=== PATIENT | male | born 1975 | race Hispanic/Latino ===

== ENCOUNTER 2022-05-04 11:05 | Emergency (ER) | payer BC ==
[~2022-05-04] VITALS: Ht 172.7 cm; Wt 104.3 kg
[2022-05-04 11:39] VITALS: BP 141/70
[2022-05-04 13:03] LABS: HEMATOCRIT 37.3 % (42-54); MEAN CORPUSCULAR HEMOGLOBIN 28.6 pg (27.0-33.0); MEAN CORPUSCULAR HGB CONC 34.3 g/dL (32.0-36.0); MEAN CORPUSCULAR VOLUME 83.4 fL (79-99); MONOCYTES % (AUTO) 5.6 % (3.0-13.0); NEUTROPHILS % (AUTO) 59.9 % (40.0-77.0); PLATELET COUNT (AUTO) 248 K/uL (130-400); RED BLOOD CELL COUNT(AUTO) 4.47 MIL/uL (4.50-6.20); RED CELL DISTRIBUTION WIDTH 12.9 % (11.0-15.5); WHITE BLOOD COUNT (AUTO) 8.3 K/uL (4.8-10.8)
[2022-05-04 13:18] LABS: ALBUMIN 2.6 g/dL (3.5-5.0); CREATININE 1.3 mg/dL (0.5-1.5); POTASSIUM 3.9 mmol/L (3.5-5.1); TOTAL PROTEIN, SERUM 7.2 g/dL (6.0-8.3)
[2022-05-04] MEDS ORDERED: IOHEXOL 350 MG/ML 100ML INFUS..BTL IV ONE (16:59)
[2022-05-04 17:18] LABS: APPEARANCE,URINE CLEAR (CLEAR); BILIRUBIN,URINE NEGATIVE (NEGATIVE); COLOR,URINE COLORLESS (YELLOW); GLUCOSE, URINE (UA) >=1000 mg/dL (NEGATIVE); KETONES,URINE NEGATIVE (NEGATIVE); LEUKOCYTE ESTERASE ,URINE 75 Leu/uL (NEGATIVE); NITRATE,URINE NEGATIVE (NEGATIVE); OCCULT BLOOD,URINE MODERATE (NEGATIVE); PROTEIN,URINE 70 mg/dL (NEGATIVE); UROBILINOGEN,URINE 0.2 mg/dL (0.2-1.0)
[2022-05-04 17:50] LABS: BACTERIA,URINE FEW /HPF (None Seen); SQUAMOUS EPITHELIAL CELL,UR RARE /HPF (0-2); WBC,URINE 26-50 /HPF (0-1); YEAST,URINE BUDDING FEW /HPF (None Seen)
[2022-05-04] MEDS ORDERED: SOLU-MEDROL 125MG VIAL IM ONE (18:30)
[2022-05-04] MEDS ORDERED: INSULIN HUMULIN R 100 UNIT/ML 3ML SQ ONE (19:00)
[2022-05-04] MEDS ORDERED: 0.9%NACL 1000ML 1,000 ML IV ONE (19:00)
== END 2022-05-04 19:53 | disposition home or self-care (01) ==
LOC: EDH 11:05
DX: R06.02 Shortness of breath (principal); E11.9 Type 2 diabetes mellitus without complications; I10 Essential (primary) hypertension; Z90.49 Acquired absence of other specified parts of digestive tract
CPT/HCPCS: 99284; 96360; 71270; 71045; 84484; 80053; 85025; 85378; 87088; 81001; 36415; 96372 ×2; 93005; J1815; J7030; J2930; Q9967; 96361

== ENCOUNTER 2024-10-14 12:44 | Inpatient (IN) | payer BC ==
[~2024-10-14] VITALS: Ht 172.7 cm; Wt 115.4 kg
[2024-10-14 13:03] LABS: IMMATURE GRANULOCYTE ABSOLUTE 0.20 K/uL (0-1); NUCLEATED RED BLOOD CELLS 0.0 % (0.0-0.19); PLATELET COUNT (AUTO) 281 K/uL (130-400); RED BLOOD CELL COUNT(AUTO) 3.39 MIL/uL (4.50-6.20); RED CELL DISTRIBUTION WIDTH 16.5 % (11.0-15.5); WHITE BLOOD COUNT (AUTO) 8.5 K/uL (4.8-10.8)
[2024-10-14 13:10] LABS: CREATININE 2.2 mg/dL (0.5-1.3); GLOMERULAR FILTR. RATE CALC 36.0 mL/min (>90); GLUCOSE,RANDOM 166.0 mg/dL (70-105); SODIUM SERUM 146.0 mmol/L (136-145); UREA NITROGEN, BLOOD 39.0 mg/dL (7-18)
--- NOTE | 2024-10-14 13:23 | EKG ---
[facility] Test Date: 2024-10-14 Test Time: 12:49:15 Pat Name: BORIS YE Department: EDH Room: 328 Gender: M Direct Care Specialist: [id number] : 1975 Requested By: FER BARRIOS Order Number: [id number] Reading MD: Wander Parisi Measurements Intervals [place] Rate: 76 P: 27 SD: 129 QRS: -22 QRSD: 93 T: 80 QT: 392 QTc: 443 Interpretive Statements Sinus rhythm Probable LVH with secondary repol abnrm Compared to ECG 05/04/2022 11:44:28 Ventricular premature complex(es) no longer present Electronically Signed On 10-19-2024 10:26:25 CDT by Wander Parisi Please click the below link to view image of tracing.
--- NOTE | 2024-10-14 13:25 | ERN ---
General Chief Complaint: Shortness of Breath Stated Complaint: SOB Time Seen by MD: 13:00 Source: patient History of Present Illness Initial Comments Mr. Desean WARREN is a 49 year old male patient brought to the ER by the EMS from his residence. Pt has been complaining of shortness of breath from the last night. He says he has SOB even with talking. Pt was recently admitted to [facility] for similar complaints and was discharged a month ago. Pt says that he was advised to discontinue Lasix during his admission last month. Pt has had similar complaints since his COVID 5 years ago Pt also complains of bilateral leg swelling. 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 Allergies: Coded Allergies: No Known Allergies (Unverified Allergy, Unknown, 05/04/22) Past Medical History Past Medical History: Diabetes-Type II, Heart Disease, Hypertension, Lung Disease Past Surgical History: Appendectomy Surgical History Other: CARDIAC STENTS X3 ROS Dictation CONSTITUTIONAL: No chills, no fever, no weakness, no diaphoresis, no malaise. HEAD/FACE: No signs of trauma. EENT: No eye pain, no blurred vision, no tearing, no double vision, no ear pain , no ear discharge, no nose pain, no nasal congestion, no throat pain, no throat swelling, no mouth pain. RESPIRATORY: No cough, SOB, orthopnea, no PND, no wheezing. CARDIOVASCULAR: No chest pain, b/l leg edema, no palpitations, no syncope. GASTROINTESTINAL/ABDOMINAL: No abdominal pain, no constipation, no diarrhea, no nausea, no vomiting. GENITOURINARY: No abnormal discharge, no dysuria, no frequent urination, no hematuria. No complaints of pain in the genitals. MUSCULOSKELETAL: No back pain, no gout, no joint pain, no joint swelling, no muscle pain, no muscle stiffness, no neck pain. INTEGUMENTARY: No change in color, no change in hair/nails, no dryness, no lesion, no lumps, no rash. NEUROLOGICAL/PSYCH: No anxiety, not depressed, no emotional problem, no headache, no numbness, no pre-existing deficit, no history of seizures, no tremors, no weakness. HEMATOLOGIC/LYMPHATIC: Not anemic, no history of blood clots, no apparent bleeding, no bruising, glands not swollen. All Systems Negative, Except as Noted. Physical Exam Physical Exam Dictation VITAL SIGNS: Reviewed. GENERAL APPEARANCE: Alert, oriented x3 HEAD AND FACE: Non-traumatic. EYES: PERRL, pink conjunctivas, eyelid no trauma, anterior chamber clear. EARS: Pinnas intact and no signs of trauma or erythema. Ear canals clear and no discharge. TMs no erythema. NOSE: No discharge, no bleeding. OROPHARYNX: Mouth normal, teeth no caries, tongue pink. Pharynx clear, no erythema. Tonsils no exudates, no abscesses noted. Mucous membrane moist. NECK: Supple, non-tender, no thyromegaly, no masses, no JVD, no bruits. BREAST: Deferred. CHEST: No tenderness, no crepitus, no paradoxical movement, no retractions. LUNGS: B/l crackles heard up to upper lobes, symmetric, no rales, no wheezing, no rhonchi, no stridor. HEART: Regular rate, regular rhythm, no murmur, no gallops. VASCULAR: No peripheral edema. ABDOMEN: Soft, positive bowel sounds, nondistended, no guarding, nontender, no rebound, no masses no hepatomegaly, no splenomegaly, no Mckinley's sign, no hernias. RECTAL: Deferred. GENITAL: Deferred. NEUROLOGICAL: Normal speech, gross motor function intact, gross sensory function intact. MUSCULOSKELETAL: Neck nontender, full range of motion, back nontender, full range of motion. EXTREMITIES: B/l pitting edema in legs, Nontender, full range of motion. SKIN: Color pink, dry, no turgor, no rash, no lacerations, no abrasions, no contusions. LYMPHATICS: Deferred. Results Laboratory and Microbiology Lab and Micro Result Laboratory Tests Test 10/14/24 12:57 10/14/24 14:01 White Blood Count 8.5 K/uL (4.8-10.8) Red Blood Count 3.39 MIL/uL (4.50-6.20) L Hemoglobin 9.8 g/dL (14.0-18.0) L Hematocrit 29.7 % (42-54) L Mean Corpuscular Volume 87.6 fL (79-99) Mean Corpuscular Hemoglobin 28.9 pg (27.0-33.0) Mean Corpuscular Hemoglobin Concent 33.0 g/dL (32.0-36.0) Red Cell Distribution Width 16.5 % (11.0-15.5) H Platelet Count 281 K/uL (130-400) Mean Platelet Volume 9.7 fL (7.5-10.5) Immature Granulocyte % (Auto) 2.4 % (0-1) H Neutrophils (%) (Auto) 63.9 % (40.0-77.0) Lymphocytes (%) (Auto) 25.3 % (21.0-51.0) Monocytes (%) (Auto) 5.7 % (3.0-13.0) Eosinophils (%) (Auto) 2.1 % (0.0-8.0) Basophils (%) (Auto) 0.6 % (0.0-5.0) Neutrophils # (Auto) 5.4 K/uL (1.8-7.7) Lymphocytes # (Auto) 2.1 K/uL (1.0-4.8) Monocytes # (Auto) 0.5 K/uL (0.1-1.0) Eosinophils # (Auto) 0.18 K/uL (0.00-0.70) Basophils # (Auto) 0.05 K/uL (0.00-0.20) Absolute Immature Granulocyte (auto 0.20 K/uL (0-1) Nucleated Red Blood Cells 0.0 % (0.0-0.19) Sodium Level 146 mmol/L (136-145) H Potassium Level 3.7 mmol/L (3.5-5.1) Chloride Level 110 mmol/L (101-111) Carbon Dioxide Level 31 mmol/L (21-32) Blood Urea Nitrogen 39 mg/dL (7-18) H Creatinine 2.2 mg/dL (0.5-1.3) H Glomerular Filtration Rate Calc 36 mL/min (>90) Random Glucose 166 mg/dL (70-105) H Total Calcium 7.9 mg/dL (8.5-10.1) L Troponin I High Sensitivity 22 ng/L (4-75) B-Type Natriuretic Peptide 110 pg/mL (0-100) H Urine Color LIGHT-YELLOW (YELLOW) Urine Appearance CLOUDY (CLEAR) H Urine pH 6.5 (5.0-8.0) Urine Specific [place] 1.017 (1.001-1.031) Urine Protein 300 mg/dL (NEGATIVE) H Urine Glucose (UA) 500 mg/dL (NEGATIVE) H Urine Ketones NEGATIVE mg/dL (NEGATIVE) Urine Occult Blood SMALL (NEGATIVE) H Urine Nitrate NEGATIVE (NEGATIVE) Urine Bilirubin NEGATIVE mg/dL (NEGATIVE) Urine Urobilinogen 0.2 mg/dL (0.2-1.0) Urine Leukocyte Esterase 500 Mariama/uL (NEGATIVE) H Urine RBC 11-25 /HPF (0-1) H Urine WBC >100 /HPF (0-1) H Urine Squamous Epithelial Cells RARE /HPF (0-2) Urine Bacteria RARE /HPF (None Seen) MDM MDM: Differential diagnosis: MARISABEL with UTI, MARISABEL on CKD, Acute Bronchitis, Lung scarring post COVID. Rationale: Tests considered and ordered secondary to shared decision making include: Previous outside records reviewed: Old ER visits. Risk of complication and/or morbidity or mortality of patient management: None Medications-Per medication reconciliation Need for hospitalization: Patient meets criteria for hospitalization. Need for emergency major/minor surgery: No There are no social concerns with this patient. Prescription drug management Prescriptions will include symptomatic care Patient's prior external medical records from other ER visits were reviewed by me as indicated. Prior testing and results from previous visits were reviewed. Prior tests were taken into account with medical decision making and resource utilization, independent historian/historians were used to obtain complete medical history. I independently interpreted the test that were performed, results were reviewed by me and considered findings on radiology if ordered. * Medical management and examination interpretation discussions were had by me with other qualified healthcare professionals as indicated for the patient's care. Pt case was discussed with Hospitalist and will be admitted under Dr. Peraza for Inpatient management. ED Course Orders Procedure Category Date Status Time Cbc With Differential LAB 10/14/24 Complete 12:45 Chest 1vw RAD 10/14/24 Resulted 12:45 12 Lead Ekg Tracing- EKG 10/14/24 Complete Technical 12:45 Troponin I High LAB 10/14/24 Complete Sensitivity 12:45 Urinalysis Profile LAB 10/14/24 Complete 12:45 Basic Metabolic Panel LAB 10/14/24 Complete 12:45 B-Type Natriuretic LAB 10/14/24 Complete Peptide 12:45 Culture Urine JUNIOR 10/14/24 In Process 14:26 Lactated Ringers PHA 10/14/24 In Process 1000ml (Lactated 15:00 Ceftriaxone 1g Vial PHA 10/14/24 Complete (Rocephine 1g Inj) 15:00 Current Medications Medications (Trade) Dose Ordered Sig/Rosaura Route PRN Reason Start Time Stop Time Status Last Admin Dose Admin Ceftriaxone Sodium (ROCEphine 1G INJ) 1 gm ONCE ONCE IVPB 10/14/24 15:00 10/14/24 15:02 DC Lactated Ringer's 1,000 ml @ 125 mls/hr Q8H IV 10/14/24 15:00 11/13/24 14:59 Vital Signs Date Time Temp Pulse Resp B/P (MAP) Pulse Ox O2 Delivery O2 Flow Rate FiO2 10/14/24 12:51 97.9 76 20 143/90 96 Room Air DX & DISP Disposition: Inpatient Decision to Admit Time: 16:00 Departure Impression: Primary Impression: Acute kidney injury superimposed on chronic kidney disease Additional Impression: UTI (urinary tract infection) with pyuria Condition: Stable Referrals: PAULA LOVE (PCP) MEET BLACK MD Oct 14, 2024 13:25 FER BARRIOS MD Oct 14, 2024 15:58
[2024-10-14 14:19] LABS: APPEARANCE,URINE CLOUDY (CLEAR); GLUCOSE, URINE (UA) 500 mg/dL (NEGATIVE); LEUKOCYTE ESTERASE ,URINE 500 Leu/uL (NEGATIVE); NITRATE,URINE NEGATIVE (NEGATIVE); OCCULT BLOOD,URINE SMALL (NEGATIVE)
[2024-10-14 14:26] LABS: ADD UA MICROSCOPIC YES
[2024-10-14 14:30] LABS: SQUAMOUS EPITHELIAL CELL,UR RARE /HPF (0-2)
--- NOTE | 2024-10-14 14:54 | HMCIMG ---
EXAM: CR Chest, 1 View. CLINICAL HISTORY: sob COMPARISON: Chest radiograph dated May 04, 2022. FINDINGS: There is mild bilateral perihilar and bibasilar airspace disease that may reflect a combination of atelectasis and pulmonary edema. No pleural effusion or pneumothorax. Mild cardiomegaly, and pulmonary vascular congestion. IMPRESSION: 1. Mild bilateral perihilar and bibasilar airspace disease, possibly representing atelectasis and pulmonary edema. 2. Mild cardiomegaly with pulmonary vascular congestion. /[place]
[2024-10-14] MEDS ORDERED: LACTULOSE 20 GM/30 ML UDCUP PO PRN (15:30)
--- NOTE | 2024-10-14 15:42 | HP ---
[facility] HISTORY AND PHYSICAL Date of Service: Oct 14, 2024 Time of Service: 15:32 HISTORY OF PRESENT ILLNESS: [ ] admission date: 10/14/2024 PCP: Vonnie Goncalves CC: Shortness of breath This is a 49-year-old male presents in ED with chief complaints of shortness a breath. 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 Patient was recently hospitalized at [facility] for similar symptoms. Patient is not home oxygen dependent. Patient stated he does not meet criteria for home oxygen in the past. Patient has a plus two edema to lower extremities reports he was on diuretics and was placed on hold per his PCP. Patient has cardiac issues x3 stents he is on Wteuvp24 mg daily atorvastatin, Ranexa 500 every12 hour which I reviewed from external medication history. ER workup was consistent for UTI. Imaging checks x-ray congestion pulmonary edema. Labs reviewed BNP 110, REVIEW OF SYSTEMS a 12 point ROS was obtained all relevant were documenter otherwise ROS negative PAST MEDICAL HISTORY: [ ] Hypertension, diabetes type 2, CKD, COVID-19 with excessive lung scarring PAST SURGICAL HISTORY: [ ] Cardiac stents x3, appendectomy PAST SOCIAL HISTORY: [ ] FAMILY HISTORY: [ ] Coded Allergies: No Known Allergies (Unverified Allergy, Unknown, 05/04/22) PHYSICAL EXAM GENERAL APPEARANCE: The patient is awake, alert, and oriented, with respiratory failure requiring oxygen supplemental. NEUROLOGICAL: Cranial nerves II-XII grossly intact. Motor is 5/5 in bilateral upper and lower extremities proximal to distal. No sensory deficits. HEENT: Face is symmetric. Pupils are equal and reactive. Extraocular movements are intact. NECK: Supple. No JVD. No thyromegaly. No submental, submandibular, pre- /postauricular, occipital or supraclavicular lymphadenopathy. CHEST: Normal chest expansion. No Telemetry. LUNGS: Absence of any rales, rhonchi +wheezing. CARDIOVASCULAR: Regular. S1 and S2 normal. No appreciable rubs, murmurs or gallops. ABDOMEN: Soft, nontender, and nondistended. There is no rebound, voluntary guarding, or rigidity. : Deferred. No Parker. EXTREMITIES: Non-edematous and not cyanotic. No clubbing. Good capillary refill. SKIN: No skin breakdown. Vital Sign (Last 24 Hours) 10/14/24 12:51 Temp 97.9 Pulse 76 Resp 20 B/P (MAP) 143/90 Pulse Ox 96 O2 Delivery Room Air LABS: Laboratory: Test 10/14/24 14:01 10/14/24 12:57 Range/Units Urine Color LIGHT-YELLOW YELLOW Urine Appearance CLOUDY H CLEAR Urine pH 6.5 5.0-8.0 Urine Specific [place] 1.017 1.001-1.031 Urine Protein 300 H NEGATIVE mg/dL Urine Glucose (UA) 500 H NEGATIVE mg/dL Urine Ketones NEGATIVE NEGATIVE mg/dL Urine Occult Blood SMALL H NEGATIVE Urine Nitrate NEGATIVE NEGATIVE Urine Bilirubin NEGATIVE NEGATIVE mg/dL Urine Urobilinogen 0.2 0.2-1.0 mg/dL Urine Leukocyte Esterase 500 H NEGATIVE Mariama/uL Urine RBC 11-25 H 0-1 /HPF Urine WBC >100 H 0-1 /HPF Urine Squamous Epithelial Cells RARE 0-2 /HPF Urine Bacteria RARE None Seen /HPF White Blood Count 8.5 4.8-10.8 K/uL Red Blood Count 3.39 L 4.50-6.20 MIL/uL Hemoglobin 9.8 L 14.0-18.0 g/dL Hematocrit 29.7 L 42-54 % Mean Corpuscular Volume 87.6 79-99 fL Mean Corpuscular Hemoglobin 28.9 27.0-33.0 pg Mean Corpuscular Hemoglobin Concent 33.0 32.0-36.0 g/dL Red Cell Distribution Width 16.5 H 11.0-15.5 % Platelet Count 281 130-400 K/uL Mean Platelet Volume 9.7 7.5-10.5 fL Immature Granulocyte % (Auto) 2.4 H 0-1 % Neutrophils (%) (Auto) 63.9 40.0-77.0 % Lymphocytes (%) (Auto) 25.3 21.0-51.0 % Monocytes (%) (Auto) 5.7 3.0-13.0 % Eosinophils (%) (Auto) 2.1 0.0-8.0 % Basophils (%) (Auto) 0.6 0.0-5.0 % Neutrophils # (Auto) 5.4 1.8-7.7 K/uL Lymphocytes # (Auto) 2.1 1.0-4.8 K/uL Monocytes # (Auto) 0.5 0.1-1.0 K/uL Eosinophils # (Auto) 0.18 0.00-0.70 K/uL Basophils # (Auto) 0.05 0.00-0.20 K/uL Absolute Immature Granulocyte (auto 0.20 0-1 K/uL Nucleated Red Blood Cells 0.0 0.0-0.19 % Sodium Level 146 H 136-145 mmol/L Potassium Level 3.7 3.5-5.1 mmol/L Chloride Level 110 101-111 mmol/L Carbon Dioxide Level 31 21-32 mmol/L Blood Urea Nitrogen 39 H 7-18 mg/dL Creatinine 2.2 H 0.5-1.3 mg/dL Glomerular Filtration Rate Calc 36 >90 mL/min Random Glucose 166 H 70-105 mg/dL Total Calcium 7.9 L 8.5-10.1 mg/dL Troponin I High Sensitivity 22 4-75 ng/L B-Type Natriuretic Peptide 110 H 0-100 pg/mL Current Medications Medications (Trade) Dose Ordered Sig/Rosaura Route PRN Reason Start Time Stop Time Status Last Admin Dose Admin Lactated Ringer's 1,000 ml @ 125 mls/hr Q8H IV 10/14/24 15:00 11/13/24 14:59 DIAGNOSTICS / RADIOLOGY: [ ] ASSESSMENT: Acute respiratory failure with hypoxia requiring oxygen supplemental POA suspecting PE POA Dyspnea on exertion POA UTI POA POA MARISABEL on CRFPOA Anemia on CRF POA Adult obesity class II POA Severe protein calorie malnutrition POA Hypomagnesemia POA PLAN: Admit:medical floor condition:guarded 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 Head of the bed at 45 at all times Aspiration precautions Inhaler budesonide scheduled We will monitor H&H trend transfuse to keep hemoglobin above 7.0; anemia workup Labs cbc, cmp, mag+ BNP am Replace electrolytes as needed as per protocol to keep potassium above 4.0 magnesium 2.0. avoid NSAIDS, renal dose mediation strict I/O ac/hs monitoring with SSRI coverage Home medications pending to be reviewed by RN nurse. Reviewed external medications: resumed Plavix, atorvastatin Budesonide IH PRN: MEDICATIONS Tylenol 650 mg po every 4 hrs for fever Zofran 4 mg IV every 6 hrs for n/v Hydralazine 5 mg IV every 4 hrs systolic pressure > 160 bowel regiment: lactulose 20 gm PO BID PRN constipation Supportive measures: DVT ppx, GI ppx all questions answered time spent: > 35 min Supervising MD: Dr.Ellis Ogden c/d This document was generated in part using voice recognition software, occasional wrong word or sound alike substitutions may have occurred due to the inherent limitations of voice recognition software. Read the chart carefully and recognize using context, where the substitutions have occurred. Although every effort was made to edit the content, food processor and typing errors may occur ADVANCED CARE PLANNING 1. Which of the following were discussed? Hospice Care - Yes / No Therapeutic options - Yes / No Advance Directives - Yes / No Other discussions - 2. Discussed with who? 3. Voluntary nature of this service was explained to the patient? Yes / No 4. Amount of time spent - 5. Reviewed by Physician? (if this service was performed by NPP) Yes / No ATTESTATION BY PHYSICIAN I have seen and examined the patient. I reviewed the documentation, medical decision making, and treatment plan as noted by the mid-level provider above. I agree with the findings and plan of care. FRIDA BUTTERFIELD MD, ELIZABETH NP Oct 14, 2024 15:42
[2024-10-14 15:50] LABS: IMMATURE GRANULOCYTE ABSOLUTE 0.21 K/uL (0-1); NUCLEATED RED BLOOD CELLS 0.0 % (0.0-0.19); PLATELET COUNT (AUTO) 283 K/uL (130-400); RED BLOOD CELL COUNT(AUTO) 3.20 MIL/uL (4.50-6.20); RED CELL DISTRIBUTION WIDTH 16.6 % (11.0-15.5); WHITE BLOOD COUNT (AUTO) 9.4 K/uL (4.8-10.8)
[2024-10-14] MEDS ORDERED: PoTASSium chl 10% ELIXIR 20MEQ 20 MEQ/15 ML UDCUP PO PRN (16:00)
[2024-10-14 16:07] LABS: CREATININE 2.1 mg/dL (0.5-1.3); GLOMERULAR FILTR. RATE CALC 38.0 mL/min (>90); GLUCOSE,RANDOM 86.0 mg/dL (70-105); SODIUM SERUM 146.0 mmol/L (136-145); UREA NITROGEN, BLOOD 39.0 mg/dL (7-18)
[2024-10-14 16:12] LABS: ASPARTATE AMINOTRANSFERASE 12.0 U/L (10-37); TOTAL PROTEIN, SERUM 4.8 g/dL (6.0-8.3)
--- NOTE | 2024-10-14 16:27 | HMCIMG ---
Exam: Renal Ultrasound History: MARISABEL Comparison: None Technique: Grayscale and color Doppler imaging was performed. Static images were obtained. Findings: Right kidney: The right kidney is normal in size, contour, and echogenicity. It measures 13.2 cm in length. No calculi or masses are identified. There is no evidence of hydronephrosis. Left kidney: The left kidney is normal in size, contour, and echogenicity. It measures 11.9 cm in length. No calculi or masses are identified. There is no evidence of hydronephrosis. Urinary bladder: The bladder is normal in contour and appearance. Impression: No sonographic abnormality. /[place]
[2024-10-14 17:16] VITALS: PULSE 73; RESP 18; O2SAT 97
[2024-10-14] MEDS: LACTATED RINGERS 1000ML 1,000 ML IV SCH (17:20)
[2024-10-14 19:35] VITALS: PULSE 86; RESP 18
[2024-10-14] MEDS: MAGNESIUM 2GM PREMIX 50ML 50 ML IV PRN (21:49)
--- NOTE | 2024-10-14 22:00 | NUR ---
REPORT GIVEN TO [facility].
--- NOTE | 2024-10-14 22:10 | NUR ---
PATIENT TRANSPORTED TO [facility]
[2024-10-14 22:16] VITALS: BP 159/84; PULSE 75; RESP 20; TEMP 97.7; O2SAT 100
[2024-10-14] MEDS ORDERED: IPRA3AMP24 NEB (22:35)
[2024-10-14] MEDS ORDERED: AEC81 PO (22:35)
[2024-10-14] MEDS ORDERED: HYDR50TA36 PO (22:35)
[2024-10-14] MEDS ORDERED: ATOR40TA71 PO (22:35)
[2024-10-14] MEDS ORDERED: METO10TA3 PO (22:35)
[2024-10-14] MEDS ORDERED: CLOP75TA32 PO (22:35)
[2024-10-14] MEDS ORDERED: INSLAN SQ (22:35)
[2024-10-14] MEDS ORDERED: PANT40TA54 PO (22:35)
[2024-10-14] MEDS ORDERED: CARV25TA PO (22:35)
[2024-10-14] MEDS ORDERED: BUDE0.5A3 NEB (22:35)
[2024-10-14] MEDS ORDERED: INSU100V SQ (22:35)
[2024-10-14] MEDS ORDERED: RANO500T6 PO (22:35)
[2024-10-14] MEDS ORDERED: TRAZ-253 PO (22:35)
[2024-10-14] MEDS: BUDESONIDE 0.5 MG/2 ML INH IH SCH (23:06)
[2024-10-15] VITALS (12 sets, daily range): BP systolic 144–175; BP diastolic 68–101; PULSE 54–113; RESP 18–20; TEMP 97.4–98.6; O2SAT 92–99
[2024-10-15 04:28] LABS: IMMATURE GRANULOCYTE ABSOLUTE 0.29 K/uL (0-1); NUCLEATED RED BLOOD CELLS 0.0 % (0.0-0.19); PLATELET COUNT (AUTO) 280 K/uL (130-400); RED BLOOD CELL COUNT(AUTO) 3.46 MIL/uL (4.50-6.20); RED CELL DISTRIBUTION WIDTH 16.8 % (11.0-15.5); WHITE BLOOD COUNT (AUTO) 10.4 K/uL (4.8-10.8)
[2024-10-15 05:07] LABS: ASPARTATE AMINOTRANSFERASE 13.0 U/L (10-37); CREATININE 2.1 mg/dL (0.5-1.3); GLOMERULAR FILTR. RATE CALC 38.0 mL/min (>90); GLUCOSE,RANDOM 159.0 mg/dL (70-105); SODIUM SERUM 141.0 mmol/L (136-145); TOTAL PROTEIN, SERUM 5.1 g/dL (6.0-8.3); UREA NITROGEN, BLOOD 37.0 mg/dL (7-18)
[2024-10-15 05:24] LABS: % IRON SATURATION 22.6 % (30-44); IRON, SERUM 43.0 mcg/dL (65-175)
--- NOTE | 2024-10-15 06:06 | HMCIMG ---
EXAMINATION: SPECTRAL DOPPLER ULTRASOUND EXAMINATION OF THE BILATERAL LOWER EXTREMITY VEINS. CLINICAL HISTORY: Swelling, to rule out DVT. COMPARISON: None provided. TECHNIQUE: Real-time ultrasound scan of the veins of the bilateral lower extremity with color Doppler flow, spectral waveform analysis and compression. FINDINGS: DEEP VEINS: The common femoral, superficial femoral, and popliteal veins are echolucent and compressible. There is normal color Doppler flow throughout. The visualized calf veins appear patent. SUPERFICIAL VEINS: The greater saphenous veins are patent and compressible. SOFT TISSUES: No popliteal fossa cyst or other abnormalities. There is subcutaneous edema bilaterally. IMPRESSION: No deep venous thrombosis evident in the bilateral lower extremity. No superficial thrombophlebitis in the bilateral lower extremity. Subcutaneous edema in the bilaterally. /[place]
--- NOTE | 2024-10-15 09:05 | PN ---
[facility] PROGRESS NOTE Date of Service: Oct 15, 2024 Time of Service: 09:01 SUBJECTIVE: [ ] admission date: 10/14/2024 PCP: Vonnie Goncalves CC: Shortness of breath This is a 49-year-old male presents in ED with chief complaints of shortness a breath. 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 Patient was recently hospitalized at [facility] for similar symptoms. Patient is not home oxygen dependent. Patient stated he does not meet criteria for home oxygen in the past. Patient has a plus two edema to lower extremities reports he was on diuretics and was placed on hold per his PCP. Patient has cardiac issues x3 stents he is on [id number] mg daily atorvastatin, Ranexa 500 every12 hour which I reviewed from external medication history. ER workup was consistent for UTI. Imaging checks x-ray congestion pulmonary edema. Labs reviewed BNP 110, 10/15 patient is lying in bed continue dyspneic during my evaluation waiting for V/Q scan if negative I encouraged patient out bed to chair throughout the day avoid main in bed most of the day. Waiting for cultures urine. REVIEW OF SYSTEMS a 12 point ROS was obtained all relevant were documenter otherwise ROS negative PHYSICAL EXAM GENERAL APPEARANCE: The patient is awake, alert, and oriented, with respiratory failure requiring oxygen supplemental. NEUROLOGICAL: Cranial nerves II-XII grossly intact. Motor is 5/5 in bilateral upper and lower extremities proximal to distal. No sensory deficits. HEENT: Face is symmetric. Pupils are equal and reactive. Extraocular movements are intact. NECK: Supple. No JVD. No thyromegaly. No submental, submandibular, pre- /postauricular, occipital or supraclavicular lymphadenopathy. CHEST: Normal chest expansion. No Telemetry. LUNGS: Absence of any rales, rhonchi +wheezing. CARDIOVASCULAR: Regular. S1 and S2 normal. No appreciable rubs, murmurs or gallops. ABDOMEN: Soft, nontender, and nondistended. There is no rebound, voluntary guarding, or rigidity. : Deferred. No Parker. EXTREMITIES: Non-edematous and not cyanotic. No clubbing. Good capillary r efill. SKIN: No skin breakdown. Vital Signs (last 8hr) Date Time Temp Pulse Resp B/P (MAP) Pulse Ox O2 Delivery O2 Flow Rate FiO2 10/15/24 08:00 97.7 102 18 144/77 92 Room Air 21 10/15/24 06:17 95 18 10/15/24 06:17 18 N/Cannula Low lpm 2.0 21 10/15/24 04:00 97.3 90 20 153/76 99 Room Air LABS: Laboratory: Test 10/15/24 05:01 10/15/24 04:12 10/14/24 15:43 10/14/24 14:01 Range/Units Whole Blood Glucose 145 H 70-110 MG/DL White Blood Count 10.4 4.8-10.8 K/uL Red Blood Count 3.46 L 4.50-6.20 MIL/uL Hemoglobin 10.1 L 14.0-18.0 g/dL Hematocrit 30.5 L 42-54 % Mean Corpuscular Volume 88.2 79-99 fL Mean Corpuscular Hemoglobin 29.2 27.0-33.0 pg Mean Corpuscular Hemoglobin Concent 33.1 32.0-36.0 g/dL Red Cell Distribution Width 16.8 H 11.0-15.5 % Platelet Count 280 130-400 K/uL Mean Platelet Volume 10.2 7.5-10.5 fL Immature Granulocyte % (Auto) 2.8 H 0-1 % Neutrophils (%) (Auto) 70.9 40.0-77.0 % Lymphocytes (%) (Auto) 17.6 L 21.0-51.0 % Monocytes (%) (Auto) 7.0 3.0-13.0 % Eosinophils (%) (Auto) 1.2 0.0-8.0 % Basophils (%) (Auto) 0.5 0.0-5.0 % Neutrophils # (Auto) 7.4 1.8-7.7 K/uL Lymphocytes # (Auto) 1.8 1.0-4.8 K/uL Monocytes # (Auto) 0.7 0.1-1.0 K/uL Eosinophils # (Auto) 0.13 0.00-0.70 K/uL Basophils # (Auto) 0.05 0.00-0.20 K/uL Absolute Immature Granulocyte (auto 0.29 0-1 K/uL Nucleated Red Blood Cells 0.0 0.0-0.19 % Reticulocyte Count (auto) 4.19281 H 0.42-2.23 % Immature Reticulocyte Fraction 21.20 H 0.18-0.48 % Sodium Level 141 136-145 mmol/L Potassium Level 3.7 3.5-5.1 mmol/L Chloride Level 109 101-111 mmol/L Carbon Dioxide Level 27 21-32 mmol/L Blood Urea Nitrogen 37 H 7-18 mg/dL Creatinine 2.1 H 0.5-1.3 mg/dL Glomerular Filtration Rate Calc 38 >90 mL/min Random Glucose 159 #H 70-105 mg/dL Total Calcium 8.0 L 8.5-10.1 mg/dL Magnesium Level 1.80 1.80-2.40 mg/dL Iron Level 43 L 65-175 mcg/dL Total Iron Binding Capacity 190 L 250-450 mcg/dL Percent Iron Saturation 22.6 L 30-44 % Ferritin 51 30-400 ng/mL Total Bilirubin 0.4 # 0.2-1.0 mg/dL Aspartate Amino Transf (AST/SGOT) 13 10-37 U/L Alanine Aminotransferase (ALT/SGPT) 16 12-78 U/L Alkaline Phosphatase 80 50-136 U/L B-Type Natriuretic Peptide 92 0-100 pg/mL Total Protein 5.1 L 6.0-8.3 g/dL Albumin 1.7 L 3.5-5.0 g/dL Vitamin B12 Level 280 193-986 pg/mL Folic Acid (LAB) 7.70 2-20 ng/mL D-Dimer Quantitative (PE/DVT) 625 *H 0-500 ng/mL Urine Color LIGHT-YELLOW YELLOW Urine Appearance CLOUDY H CLEAR Urine pH 6.5 5.0-8.0 Urine Specific [place] 1.017 1.001-1.031 Urine Protein 300 H NEGATIVE mg/dL Urine Glucose (UA) 500 H NEGATIVE mg/dL Urine Ketones NEGATIVE NEGATIVE mg/dL Urine Occult Blood SMALL H NEGATIVE Urine Nitrate NEGATIVE NEGATIVE Urine Bilirubin NEGATIVE NEGATIVE mg/dL Urine Urobilinogen 0.2 0.2-1.0 mg/dL Urine Leukocyte Esterase 500 H NEGATIVE Mariama/uL Urine RBC 11-25 H 0-1 /HPF Urine WBC >100 H 0-1 /HPF Urine Squamous Epithelial Cells RARE 0-2 /HPF Urine Bacteria RARE None Seen /HPF Test 10/14/24 12:57 Range/Units Troponin I High Sensitivity 22 4-75 ng/L Current Medications Medications (Trade) Dose Ordered Sig/Rosaura Route PRN Reason Start Time Stop Time Status Last Admin Dose Admin Acetaminophen (TYLenol 325MG TAB) 650 mg Q4H PRN PO TEMPERATURE GREATER THAN 101.5 10/14/24 16:00 11/13/24 15:59 Amlodipine Besylate (NorvASC 5MG TAB) 5 mg DAILY PO 10/15/24 09:00 11/14/24 08:59 Atorvastatin Calcium (LIPItor 40MG) 40 mg HS PO 10/14/24 21:00 11/13/24 20:59 10/14/24 21:48 40 MG Budesonide (Pulmicort 0.5 Mg/2ml) 0.5 mg BIDRESP IH 10/14/24 18:00 11/13/24 17:59 10/15/24 06:16 0.5 MG Ceftriaxone Sodium (ROCEphine 1G INJ) 1 gm Q24H IVPB 10/15/24 15:00 10/25/24 14:59 Clopidogrel Bisulfate (plaVIX 75MG) 75 mg DAILY PO 10/15/24 09:00 11/14/24 08:59 Hydralazine HCl (APRESOLine 20MG INJ) 5 mg Q4H PRN IV ADMINISTER FOR SBP > 160 10/14/24 16:00 11/13/24 15:59 10/15/24 03:23 5 MG Insulin Human Regular (humuLIN R 100 UNIT/ML 3ML) INSULIN SLIDING SCAL... ACHS SQ 10/14/24 16:30 11/13/24 16:29 10/14/24 21:57 6 UNIT Lactated Ringer's 1,000 ml @ 75 mls/hr [id number] IV 10/14/24 15:00 10/15/24 02:59 DC 10/14/24 17:20 75 MLS/HR Lactulose (Constulose 20gm/ 30ml Udcup) 20 gm BID PRN PO CONSTIPATION 10/14/24 15:30 11/13/24 15:29 Magnesium Sulfate 50 ml @ 0 mls/hr PROTOCOL PRN IV low mag level 10/14/24 16:00 11/13/24 15:59 10/15/24 05:19 25 MLS/HR Pantoprazole Sodium (PROTonix 40MG INJ) 40 mg DAILY IVP 10/15/24 09:00 11/14/24 08:59 Potassium Chloride 100 ml @ 100 mls/hr AD PRN IV POTASSIUM PROTOCOL 10/14/24 16:00 11/13/24 15:59 Potassium Chloride (K-Dur/Klor-Con 20meq) 20 meq AD PRN PO POTASSIUM PROTOCOL 10/14/24 16:00 11/13/24 15:59 Potassium Chloride (KCl 10% Elixir 20meq/15ml) 20 meq AD PRN PO POTASSIUM PROTOCOL 10/14/24 16:00 11/13/24 15:59 DIAGNOSTICS / RADIOLOGY: [ ] ASSESSMENT: Acute respiratory failure with hypoxia requiring oxygen supplemental POA suspecting PE Dyspnea on exertion POA UTI POA POA MARISABEL on CRF Anemia on CRF POA Adult obesity class II POA Severe protein calorie malnutrition POA Hypomagnesemia POA PLAN: Admit:medical floor condition:guarded 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 b.i.d.. Pulmo largest started him on steroids Solu-Medrol 40 mg IV every8 hours and CT of chest. Microbiology: urine cultures in process Imaging: Pending V/Q scan elevated D-dimer Echo to evaluate LV function noted, Renal sonogram , venous doppler to lower ext noted Oxygen supplement to keep O2 sats above 92%. Head of the bed at 45 at all times Aspiration precautions Inhaler budesonide scheduled We will monitor H&H trend transfuse to keep hemoglobin above 7.0; anemia workup Labs cbc, cmp, mag+ BNP am Replace electrolytes as needed as per protocol to keep potassium above 4.0 magnesium 2.0. avoid NSAIDS, renal dose mediation strict I/O ac/hs monitoring with SSRI coverage Home medications reviewed and reconciled Supportive measures: DVT ppx, GI ppx all questions answered Supervising MD: Dr.Ellis Ogden c/d This document was generated in part using voice recognition software, occasional wrong word or sound alike substitutions may have occurred due to the inherent limitations of voice recognition software. Read the chart carefully and recog nize using context, where the substitutions have occurred. Although every effort was made to edit the content, kitchen assistant and typing errors may occur ATTESTATION BY PHYSICIAN I have seen and examined the patient. I reviewed the documentation, medical decision making, and treatment plan as noted by the mid-level provider above. I agree with the findings and plan of care. FRIDA BUTTERFIELD MD, ELIZABETH NP Oct 15, 2024 09:05
[2024-10-15] MEDS: PoTASSium chloRIDE 20MEQ ER 20 MEQ ERTAB PO PRN (09:15)
[2024-10-15] MEDS: amLODIPine 5 MG TAB PO SCH (09:15)
[2024-10-15 09:36] LABS: ABG BASE EXCESS -3.8 mmol/L (-2.0-3.0); ABG HCO3 22.4 mmol/L (21.0-28.0); ABG OXYGEN SATURATION 78.7 % (94.0-98.0); ABG PCO2 44 mmHg (35-48); ABG PH 7.320 (7.350-7.450); DEVICE COMMENT RRGISELLE; PO2, ARTERIAL BG 46.3 mmHg (83.0-108.0); TEMPERATURE, CELSIUS BG 37.0 CELSIUS (35.5-37.0)
--- NOTE | 2024-10-15 09:53 | NUR ---
DCP: HOME Pt currently lives with sps Tonie Atkinson [phone]. Pt not does not have DME, home health, or provider services. Pt states that he is able to complete ADLs independently. PCP is Gerson Shankar and uses [facility] for any RX needs. At [place] pt will want to go home and family can assist with transportation. Addendum: 10/15/24 at 0955 by FRANKI DOVER SS Amended: Links added.
--- NOTE | 2024-10-15 11:18 | CONS ---
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 Continue Rocephin Start doxycycline Solu-Medrol 40 mg IV every8 hours 6 minute walk test for home O2 eval prior to discharge Obtain CT of the chest HPI: This is a 49-year-old male presents in ED with chief complaints of shortness a breath. 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 Patient was recently hospitalized at [facility] for similar symptoms. Patient is not home oxygen dependent. Patient stated he does not meet criteria for home oxygen in the past. Patient has a plus two edema to lower extremities reports he was on diuretics and was placed on hold per his PCP. Patient has cardiac issues x3 stents he is on [id number] mg daily atorvastatin, Ranexa 500 every12 hour which were reviewed from external medication history. ER workup was consistent for UTI. Imaging checks x-ray congestion pulmonary edema. Labs reviewed BNP 110, patient was placed on3 L nasal cannula for this reason we are consulted. Patient is seen sitting up at the side of the bed appears to be weak with shortness on breath we will communicating. Patient reports he has been dealing with this problem since COVID in 2019 however is progressively getting worse. Patient has been hospitalized on several occasions and then discharged home. P atient admits he has never followed up with a access registrar. Patient is currently on2 L nasal cannula and doing well. Requested set of ABGs and a PO2 with a 46.3. Patient was noted to have bilateral lower extremity edema. Recommend obtain a 2D echo. Recommended CT of the chest. Continue Rocephin. Add doxycycline. Short course of Solu-Medrol 40 mg every 8 hours. Obtain a CRP and ESR. Agree with Pulmicort. Add Atrovent every 4 hours. Obtain a 6 minute walk test for home O2 eval prior to discharge. Patient advised on the importance of outpatient follow up in Pulmonary Clinic. We will continue to follow with you. PAST MEDICAL HX: see above PAST SURGICAL HX: noncontributory SOCIAL HISTORY: No tobacco, ETOH, or illicit drug use Coded Allergies: No Known Allergies (Unverified Allergy, Unknown, 05/04/22) REVIEW OF SYSTEMS: 12 point ROS reviewed with patient. Pertinent positives mentioned above. Otherwise negative. PHYSICAL EXAM: GENERAL: alert, weak, awake oriented x 3 HEENT: EOMI, Sclera non icteric, moist mucosa NECK: Supple, no JVD, trachea midline LUNGS: Clear breath sounds bilaterally. No wheezes HEART: Regular rate and rhythm. Normal S1 and S2, without murmurs ABD: Abdomen soft, nontender. Bowel sounds present EXT: No clubbing cyanosis or edema NEURO: Alert and oriented to person, follows commands Vital Signs (last 8hr) Date Time Temp Pulse Resp B/P (MAP) Pulse Ox O2 Delivery O2 Flow Rate FiO2 10/15/24 09:45 73 18 N/Cannula Low lpm 2.0 28 10/15/24 08:00 97.7 102 18 144/77 92 Room Air 21 10/15/24 06:17 95 18 10/15/24 06:17 18 N/A Room Air 2.0 21 10/15/24 04:00 97.3 90 20 153/76 99 Room Air LABS: Hematology Labs: Test 10/15/24 04:12 Range/Units White Blood Count 10.4 4.8-10.8 K/uL Red Blood Count 3.46 L 4.50-6.20 MIL/uL Hemoglobin 10.1 L 14.0-18.0 g/dL Hematocrit 30.5 L 42-54 % Mean Corpuscular Volume 88.2 79-99 fL Mean Corpuscular Hemoglobin 29.2 27.0-33.0 pg Mean Corpuscular Hemoglobin Concent 33.1 32.0-36.0 g/dL Red Cell Distribution Width 16.8 H 11.0-15.5 % Platelet Count 280 130-400 K/uL Mean Platelet Volume 10.2 7.5-10.5 fL Immature Granulocyte % (Auto) 2.8 H 0-1 % Neutrophils (%) (Auto) 70.9 40.0-77.0 % Lymphocytes (%) (Auto) 17.6 L 21.0-51.0 % Monocytes (%) (Auto) 7.0 3.0-13.0 % Eosinophils (%) (Auto) 1.2 0.0-8.0 % Basophils (%) (Auto) 0.5 0.0-5.0 % Neutrophils # (Auto) 7.4 1.8-7.7 K/uL Lymphocytes # (Auto) 1.8 1.0-4.8 K/uL Monocytes # (Auto) 0.7 0.1-1.0 K/uL Eosinophils # (Auto) 0.13 0.00-0.70 K/uL Basophils # (Auto) 0.05 0.00-0.20 K/uL Absolute Immature Granulocyte (auto 0.29 0-1 K/uL Nucleated Red Blood Cells 0.0 0.0-0.19 % Reticulocyte Count (auto) 4.12399 H 0.42-2.23 % Immature Reticulocyte Fraction 21.20 H 0.18-0.48 % Chemistry Labs: Test 10/15/24 10:41 10/15/24 04:12 10/14/24 12:57 Range/Units Whole Blood Glucose 187 H 70-110 MG/DL Sodium Level 141 136-145 mmol/L Potassium Level 3.7 3.5-5.1 mmol/L Chloride Level 109 101-111 mmol/L Carbon Dioxide Level 27 21-32 mmol/L Blood Urea Nitrogen 37 H 7-18 mg/dL Creatinine 2.1 H 0.5-1.3 mg/dL Glomerular Filtration Rate Calc 38 >90 mL/min Random Glucose 159 #H 70-105 mg/dL Total Calcium 8.0 L 8.5-10.1 mg/dL Magnesium Level 1.80 1.80-2.40 mg/dL Iron Level 43 L 65-175 mcg/dL Total Iron Binding Capacity 190 L 250-450 mcg/dL Percent Iron Saturation 22.6 L 30-44 % Ferritin 51 30-400 ng/mL Total Bilirubin 0.4 # 0.2-1.0 mg/dL Aspartate Amino Transf (AST/SGOT) 13 10-37 U/L Alanine Aminotransferase (ALT/SGPT) 16 12-78 U/L Alkaline Phosphatase 80 50-136 U/L B-Type Natriuretic Peptide 92 0-100 pg/mL Total Protein 5.1 L 6.0-8.3 g/dL Albumin 1.7 L 3.5-5.0 g/dL Vitamin B12 Level 280 193-986 pg/mL Folic Acid (LAB) 7.70 2-20 ng/mL Troponin I High Sensitivity 22 4-75 ng/L Coagulation Labs: Test 10/14/24 15:43 Range/Units D-Dimer Quantitative (PE/DVT) 625 *H 0-500 ng/mL DIAGNOSTICS / RADIOLOGY RESULTS: PATIENT: BORIS YE JR MR#: [id number] : 1975 SEX: M AGE: 49 LOCATION: [facility] ORDER 46 STATUS: REG REPORT#: [id number] SERVICE REASON: sob ORDERING PHYSICIAN: FER BARRIOS MD PROCEDURE: CXR1VW - CHEST 1VW EXAM: CR Chest, 1 View. CLINICAL HISTORY: sob COMPARISON: Chest radiograph dated May 04, 2022. FINDINGS: There is mild bilateral perihilar and bibasilar airspace disease that may reflect a combination of atelectasis and pulmonary edema. No pleural effusion or pneumothorax. Mild cardiomegaly, and pulmonary vascular congestion. IMPRESSION: 1. Mild bilateral perihilar and bibasilar airspace disease, possibly representing atelectasis and pulmonary edema. 2. Mild cardiomegaly with pulmonary vascular congestion. /[place] DICTATED BY: DALY CHRISTY Jr., MD DATE: 10/14/241552 ELECTRONICALLY SIGNED BY: DALY CHRISTY Jr., MD DATE: 10/14/241552 PLAN NEURO: Minimize central acting medications as possible. Maintain fall precautions, adequate lighting during the day PULMONARY: Supplemental 02 as needed. Maintain aspiration precautions at all times CARDIOVASCULAR: Follow hemodynamics. Vital signs per facility protocol GI & NUTRITION: Continue with nutritional support. Continue stool softeners and laxatives as needed. KIDNEYS & ELECTROLYTES: Strict monitoring of intake, output and overall fluid balance. Avoid nephrotoxic medications to the extent possible. Medications to be dosed according to renal function. Monitor electrolytes and replace as needed ENDOCRINE: Maintain blood glucose between 100-180 at all times. Hypoglycemia protocol in place INFECTIOUS DISEASE: Trend temperature, WBC and procalcitonin level Follow cultures, deescalate antibiotics as soon as possible. Panculture if new onset fever ONCOLOGY/HEMATOLOGY/COAGULATION: Monitor for s/s of bleeding Monitor hemoglobin, coagulation studies as needed SKIN: Pressure ulcer prevention per facility protocol Specialty mattress ORTHO/REHAB: Continue PT/OT Prophylaxis: Continue GI and DVT prophylaxis Code Status: Full Resuscitation Disposition: As per attending ATTESTATION BY PHYSICIAN The patient has been seen and evaluated, the case has been discussed with the ENGINE LATHE TENDER, I agree with the clinical findings and plan of care. Td Flores MD, ECTOR N ENGINE LATHE TENDER Oct 15, 2024 11:18
[2024-10-15] MEDS: DOXYCYCLINE 100MG+NS 250ML 250 ML IV SCH (11:39)
[2024-10-15] MEDS: Solu-medROL 40MG VIAL IVP SCH (11:39)
--- NOTE | 2024-10-15 18:17 | HMCSR ---
APPROVED REPORT EXAM: Two-dimensional and M-mode echocardiogram with Doppler and color Doppler. INDICATION ICD: Shortness of breath R06.02 2D Dimensions RVDd4.1 cmLVEF(%)74.1 (>50%)LVED Vol(simp.)152.5 mL IVSd0.8 (0.7-1.1cm)FS(%)43 %LVES Vol(simp.)81.0 mL LVDd4.5 (3.8-5.6cm)LA (2D)4.3 (1.6-4.0cm)LVEF(%, simp.)47 % PWd1.2 (0.7-1.1cm)Ao Root(2D)3.2 (2.0-3.7cm)LA ESV INDEX (BP)49.24 mL/m2 LVDs2.6 (2.5-4.0cm)LVOT diam2.4 (1.8-2.4cm) Deformation Strain Apical 4-13.0 % Apical 2-10.0 % Apical 3-10.8 % Global Strain-11.3 % M-Mode Dimensions EPSS1.1 cm LA (MM)4.2 (1.6-4.0cm) Ao Root(MM)3.7 (2.0-3.7cm) Aortic Valve AoV Vmax1.3 m/Dhaval Peak GR7.1 mmHgLVOT Vmax1.1 m/s AoV VTI0.3 mAo Mean GR4.5 mmHgLVOT VTI0.23 m AMLICAR (VMAX)3.81 cm2AVA (VTI) 3.9 cm2 Mitral Valve MV E Qofu727.4 cm/sDECEL Mnbf753 ms MV A Xuws323.7 cm/sP 1/2 T34 ms E/A ratio1.1MVA (PHT)6.4 cm2 TDI E/E' Vtqywz11.0E/E' Qujwler06.5 Medial E' Peak V3.06 cm/sLateral E' Peak V2.15 cm/s Pulmonary Valve PV Vmax1.1 m/sPV VTI0.17 mPV Mean GR2.5 mmHg PV Peak GR4.6 mmHg Left Ventricle Left ventricular cavity size is normal. Mild increased posterior LV wall thickness. LVEF is 45-50%. E -a fusion Right Ventricle The right ventricle is normal size. Right ventricular systolic function is mildly reduced. Atria The left atrium is moderately dilated. The right atrium size is normal. Aortic Valve The aortic valve is normal in structure. No aortic regurgitation is present. There is no aortic valvu lar stenosis. Mitral Valve The mitral valve is normal in structure. There is no mitral valve regurgitation noted. There is no mi tral valve stenosis. Tricuspid Valve The tricuspid valve is normal in structure. There is no tricuspid valve regurgitation noted. Pulmonic Valve The pulmonary valve is normal in structure. There is no pulmonic valvular regurgitation. Great Vessels The aortic root is normal in size. The IVC is normal in size and collapses >50% with inspiration. Pericardium Trace pericardial effusion. Conclusion Left ventricular cavity size is normal. Mild increased posterior LV wall thickness. LVEF is 45-50%. E-a fusion The right ventricle is normal size. Right ventricular systolic function is mildly reduced. The left atrium is moderately dilated. The right atrium size is normal. No valvular pathology. Trace pericardial effusion.
[2024-10-15] MEDS: RANOLAZINE 500 MG TAB.SR.12H PO SCH (19:45)
--- NOTE | 2024-10-15 22:44 | HMCIMG ---
EXAM: NM Lung Perfusion and Ventilation Scan. CLINICAL HISTORY: ELEVATED D DIMER W/RENAL INJURY TECHNIQUE: Ventilation images of the lungs were obtained after inhalation of the radiopharmceutical. Then, radiolabeled MAA was administered intravenously and planar images of the lungs were obtained in multiple projections. COMPARISON: None provided. FINDINGS: VENTILATION: No segmental ventilation defect. PERFUSION: No segmental perfusion defect. IMPRESSION: Normal VQ scan based on modified PIOPED criteria. /[place]
[2024-10-16] VITALS (13 sets, daily range): BP systolic 125–186; BP diastolic 63–112; PULSE 80–105; RESP 18–24; TEMP 97.2–98.3; O2SAT 87–98
[2024-10-16] MEDS: NITROGLYCERIN 1GM OINT 1 INCH/1GM TD ONE (04:19)
--- NOTE | 2024-10-16 06:54 | PN ---
[facility] PROGRESS NOTE Date of Service: Oct 16, 2024 Time of Service: 06:53 SUBJECTIVE: [ ] admission date: 10/14/2024 PCP: Vonnie Goncalves CC: Shortness of breath This is a 49-year-old male presents in ED with chief complaints of shortness a breath. 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 Patient was recently hospitalized at [facility] for similar symptoms. Patient is not home oxygen dependent. Patient stated he does not meet criteria for home oxygen in the past. Patient has a plus two edema to lower extremities reports he was on diuretics and was placed on hold per his PCP. Patient has cardiac issues x3 stents he is on [id number] mg daily atorvastatin, Ranexa 500 every12 hour which I reviewed from external medication history. ER workup was consistent for UTI. Imaging checks x-ray congestion pulmonary edema. Labs reviewed BNP 110, 10/15 patient is lying in bed continue dyspneic during my evaluation waiting for V/Q scan if negative I encouraged patient out bed to chair throughout the day avoid main in bed most of the day. Waiting for cultures urine. 10/16/24 patient continues on oxygen supplemental dyspnea on minimal exertion 6 minute walk with desaturation we will need home oxygen. Echo with EF of 45-50% design release engineer's was consulted patient continues on diuretics edematous to lower extremities. Kidneys on worsening we will bring dealership general manager's. Patient denied chest pain palpitation. Encourage out of bed to chair as tolerated REVIEW OF SYSTEMS a 12 point ROS was obtained all relevant were documenter otherwise ROS negative PHYSICAL EXAM GENERAL APPEARANCE: The patient is awake, alert, and oriented, with respiratory failure requiring oxygen supplemental. NEUROLOGICAL: Cranial nerves II-XII grossly intact. Motor is 5/5 in bilateral upper and lower extremities proximal to distal. No sensory deficits. HEENT: Face is symmetric. Pupils are equal and reactive. Extraocular movements are intact. NECK: Supple. No JVD. No thyromegaly. No submental, submandibular, pre- /postauricular, occipital or supraclavicular lymphadenopathy. CHEST: Normal chest expansion. No Telemetry. LUNGS: Absence of any rales, rhonchi +wheezing. CARDIOVASCULAR: Regular. S1 and S2 normal. No appreciable rubs, murmurs or gallops. ABDOMEN: Soft, nontender, and nondistended. There is no rebound, voluntary guarding, or rigidity. : Deferred. No Parker. EXTREMITIES: Non-edematous and not cyanotic. No clubbing. Good capillary refill. SKIN: No skin breakdown. Vital Signs (last 8hr) Date Time Temp Pulse Resp B/P (MAP) Pulse Ox O2 Delivery O2 Flow Rate FiO2 10/16/24 04:00 97.5 97 18 171/104 97 Room Air 10/16/24 01:00 186/112 10/16/24 00:00 98.1 105 20 158/96 95 Nasal Cannula 2.0 LABS: Laboratory: Test 10/16/24 06:13 10/16/24 05:25 10/15/24 09:33 10/15/24 04:12 Range/Units C-Reactive Protein, Quantitative 23.70 H 0.5-3.0 mg/L Whole Blood Glucose 271 H 70-110 MG/DL Blood Gas Specimen Type Arterial Arterial Blood pH 7.320 L 7.350-7.450 Arterial Blood Partial Pressure CO2 44 35-48 mmHg Arterial Blood Partial Pressure O2 46.3 *L 83.0-108.0 mmHg Arterial Blood HCO3 22.4 21.0-28.0 mmol/L Arterial Blood Oxygen Saturation 78.7 L 94.0-98.0 % Arterial Blood Base Excess -3.8 L -2.0-3.0 mmol/L Blood Gas Temperature 37.0 35.5-37.0 CELSIUS FiO2 21.0 % Blood Gas Specimen Comment RRGISELLE White Blood Count 10.4 4.8-10.8 K/uL Red Blood Count 3.46 L 4.50-6.20 MIL/uL Hemoglobin 10.1 L 14.0-18.0 g/dL Hematocrit 30.5 L 42-54 % Mean Corpuscular Volume 88.2 79-99 fL Mean Corpuscular Hemoglobin 29.2 27.0-33.0 pg Mean Corpuscular Hemoglobin Concent 33.1 32.0-36.0 g/dL Red Cell Distribution Width 16.8 H 11.0-15.5 % Platelet Count 280 130-400 K/uL Mean Platelet Volume 10.2 7.5-10.5 fL Immature Granulocyte % (Auto) 2.8 H 0-1 % Neutrophils (%) (Auto) 70.9 40.0-77.0 % Lymphocytes (%) (Auto) 17.6 L 21.0-51.0 % Monocytes (%) (Auto) 7.0 3.0-13.0 % Eosinophils (%) (Auto) 1.2 0.0-8.0 % Basophils (%) (Auto) 0.5 0.0-5.0 % Neutrophils # (Auto) 7.4 1.8-7.7 K/uL Lymphocytes # (Auto) 1.8 1.0-4.8 K/uL Monocytes # (Auto) 0.7 0.1-1.0 K/uL Eosinophils # (Auto) 0.13 0.00-0.70 K/uL Basophils # (Auto) 0.05 0.00-0.20 K/uL Absolute Immature Granulocyte (auto 0.29 0-1 K/uL Nucleated Red Blood Cells 0.0 0.0-0.19 % Reticulocyte Count (auto) 4.92035 H 0.42-2.23 % Immature Reticulocyte Fraction 21.20 H 0.18-0.48 % Sodium Level 141 136-145 mmol/L Potassium Level 3.7 3.5-5.1 mmol/L Chloride Level 109 101-111 mmol/L Carbon Dioxide Level 27 21-32 mmol/L Blood Urea Nitrogen 37 H 7-18 mg/dL Creatinine 2.1 H 0.5-1.3 mg/dL Glomerular Filtration Rate Calc 38 >90 mL/min Random Glucose 159 #H 70-105 mg/dL Total Calcium 8.0 L 8.5-10.1 mg/dL Magnesium Level 1.80 1.80-2.40 mg/dL Iron Level 43 L 65-175 mcg/dL Total Iron Binding Capacity 190 L 250-450 mcg/dL Percent Iron Saturation 22.6 L 30-44 % Ferritin 51 30-400 ng/mL Total Bilirubin 0.4 # 0.2-1.0 mg/dL Aspartate Amino Transf (AST/SGOT) 13 10-37 U/L Alanine Aminotransferase (ALT/SGPT) 16 12-78 U/L Alkaline Phosphatase 80 50-136 U/L B-Type Natriuretic Peptide 92 0-100 pg/mL Total Protein 5.1 L 6.0-8.3 g/dL Albumin 1.7 L 3.5-5.0 g/dL Vitamin B12 Level 280 193-986 pg/mL Folic Acid (LAB) 7.70 2-20 ng/mL Test 10/14/24 15:43 10/14/24 14:01 10/14/24 12:57 Range/Units D-Dimer Quantitative (PE/DVT) 625 *H 0-500 ng/mL Urine Color LIGHT-YELLOW YELLOW Urine Appearance CLOUDY H CLEAR Urine pH 6.5 5.0-8.0 Urine Specific [place] 1.017 1.001-1.031 Urine Protein 300 H NEGATIVE mg/dL Urine Glucose (UA) 500 H NEGATIVE mg/dL Urine Ketones NEGATIVE NEGATIVE mg/dL Urine Occult Blood SMALL H NEGATIVE Urine Nitrate NEGATIVE NEGATIVE Urine Bilirubin NEGATIVE NEGATIVE mg/dL Urine Urobilinogen 0.2 0.2-1.0 mg/dL Urine Leukocyte Esterase 500 H NEGATIVE Mariama/uL Urine RBC 11-25 H 0-1 /HPF Urine WBC >100 H 0-1 /HPF Urine Squamous Epithelial Cells RARE 0-2 /HPF Urine Bacteria RARE None Seen /HPF Troponin I High Sensitivity 22 4-75 ng/L Current Medications Medications (Trade) Dose Ordered Sig/Rosaura Route PRN Reason Start Time Stop Time Status Last Admin Dose Admin Acetaminophen (TYLenol 325MG TAB) 650 mg Q4H PRN PO TEMPERATURE GREATER THAN 101.5 10/14/24 16:00 11/13/24 15:59 Acetaminophen (TYLenol 325MG TAB) 650 mg Q6H PRN PO MILD PAIN (1-3) 10/15/24 09:30 11/14/24 09:29 10/15/24 11:18 650 MG Amlodipine Besylate (NorvASC 5MG TAB) 5 mg DAILY PO 10/15/24 09:00 11/14/24 08:59 10/15/24 09:15 5 MG Aspirin (Aspirin 81mg Ec Tab) 81 mg DAILY PO 10/16/24 09:00 11/15/24 08:59 Atorvastatin Calcium (LIPItor 40MG) 40 mg HS PO 10/14/24 21:00 11/13/24 20:59 10/15/24 19:45 40 MG Budesonide (Pulmicort 0.5 Mg/2ml) 0.5 mg BIDRESP IH 10/14/24 18:00 11/13/24 17:59 10/15/24 18:57 0.5 MG Carvedilol (Coreg 25MG) 25 mg BID PO 10/15/24 21:00 11/14/24 20:59 10/15/24 19:46 25 MG Ceftriaxone Sodium (ROCEphine 1G INJ) 1 gm Q24H IVPB 10/15/24 15:00 10/25/24 14:59 10/15/24 16:40 1 GM Clopidogrel Bisulfate (plaVIX 75MG) 75 mg DAILY PO 10/15/24 09:00 11/14/24 08:59 10/15/24 09:15 75 MG Doxycycline Hyclate 250 ml @ 125 mls/hr Q12H IV 10/15/24 11:30 10/25/24 11:29 10/16/24 00:56 125 MLS/HR Hydralazine HCl (APRESOLine 20MG INJ) 5 mg Q4H PRN IV ADMINISTER FOR SBP > 160 10/14/24 16:00 11/13/24 15:59 10/16/24 01:09 5 MG Hydralazine HCl ([id number] TAB) 50 mg BID PO 10/15/24 21:00 11/14/24 20:59 10/15/24 19:45 50 MG Insulin Glargine (LANtus 100 UNITS/ML 10 ML VIAL) 50 units BID SQ 10/15/24 21:00 11/14/24 20:59 10/15/24 19:48 50 UNITS Insulin Human Lispro (HumaLOG LISpro 100 UNIT/ML 3ML) 10 unit TIDAC SQ 10/15/24 11:30 11/14/24 11:29 10/16/24 06:36 10 UNIT Insulin Human Regular (humuLIN R 100 UNIT/ML 3ML) INSULIN SLIDING SCAL... ACHS SQ 10/14/24 16:30 11/13/24 16:29 10/16/24 06:35 10 UNIT Lactated Ringer's 1,000 ml @ 75 mls/hr [id number] IV 10/14/24 15:00 10/15/24 02:59 DC 10/14/24 17:20 75 MLS/HR Lactulose (Constulose 20gm/ 30ml Udcup) 20 gm BID PRN PO CONSTIPATION 10/14/24 15:30 11/13/24 15:29 Magnesium Sulfate 50 ml @ 0 mls/hr PROTOCOL PRN IV low mag level 10/14/24 16:00 11/13/24 15:59 10/15/24 05:19 25 MLS/HR Methylprednisolone Sodium Succinate (Solu-medROL 40MG) 40 mg Q8H IVP 10/15/24 11:30 11/14/24 11:29 10/16/24 03:49 40 MG Metoclopramide HCl (regLAN 10 MG TAB) 10 mg DAILY PO 10/16/24 09:00 11/15/24 08:59 Montelukast Sodium (SinguLAIR) 10 mg DAILY PO 10/16/24 09:00 11/15/24 08:59 Pantoprazole Sodium (PROTonix 40MG INJ) 40 mg DAILY IVP 10/15/24 09:00 11/14/24 08:59 10/15/24 09:15 40 MG Potassium Chloride 100 ml @ 100 mls/hr AD PRN IV POTASSIUM PROTOCOL 10/14/24 16:00 11/13/24 15:59 Potassium Chloride (K-Dur/Klor-Con 20meq) 20 meq AD PRN PO POTASSIUM PROTOCOL 10/14/24 16:00 11/13/24 15:59 10/15/24 09:15 20 MEQ Potassium Chloride (KCl 10% Elixir 20meq/15ml) 20 meq AD PRN PO POTASSIUM PROTOCOL 10/14/24 16:00 11/13/24 15:59 Ranolazine (Ranexa) 500 mg BID PO 10/15/24 21:00 11/14/24 20:59 10/15/24 19:45 500 MG Trazodone HCl (DesyREL/OlepTRO) 50 mg HS PO 10/15/24 21:00 11/14/24 20:59 10/15/24 19:46 50 MG DIAGNOSTICS / RADIOLOGY: [ ] ASSESSMENT: Acute respiratory failure with hypoxia requiring oxygen supplemental POA acute on Chronic CHF reduced ef: LVEF is 45-50%. POA suspecting PE Dyspnea on exertion POA UTI POA POA MARISABEL on CRF Anemia on CRF POA Adult obesity class II POA Severe protein calorie malnutrition POA Hypomagnesemia POA PLAN: Admit:medical floor condition:guarded Status:FUll Code consultants: design release engineer CHF EF 45-50% ; Pulmologist and Nurse Transition: worsening MARISABEL IVF: Hep lock Imaging CT chest noted Antibiotics:Rocephin 1gm IV every 24 hrs doxycycline 100 mg p.o. b.i.d.. continue diuretics every 12 hours 40 mg Continues IV Solu-Medrol 40 mg IV every8 hours Microbiology: urine cultures strep Agalactiae Group B Echo with EF LVEF is 45-50% we will wait for design release engineer's for further khadar mmendation. Oxygen supplement to keep O2 sats above 92%. Head of the bed at 45 at all times Encourage out of bed to chair as tolerated throughout the day. 6 minute walk Aspiration precautions Inhaler budesonide scheduled We will monitor H&H trend transfuse to keep hemoglobin above 7.0; anemia workup Labs cbc, cmp, mag+ BNP am Replace electrolytes as needed as per protocol to keep potassium above 4.0 magnesium 2.0. avoid NSAIDS, renal dose mediation strict I/O ac/hs monitoring with SSRI coverage Case management for discharge planning Home medications reviewed and reconciled Supportive measures: DVT ppx, GI ppx all questions answered Supervising MD: C c/d This document was generated in part using voice recognition software, occasional wrong word or sound alike substitutions may have occurred due to the inherent limitations of voice recognition software. Read the chart carefully and recognize using context, where the substitutions have occurred. Although every effort was made to edit the content, manager battery and typing errors may occur ATTESTATION BY PHYSICIAN I have seen and examined the patient. I reviewed the documentation, medical decision making, and treatment plan as noted by the mid-level provider above. I agree with the findings and plan of care. FRIDA BUTTERFIELD MD, ELIZABETH NP Oct 16, 2024 06:54
[2024-10-16 07:04] LABS: IMMATURE GRANULOCYTE ABSOLUTE 0.32 K/uL (0-1); NUCLEATED RED BLOOD CELLS 0.0 % (0.0-0.19); PLATELET COUNT (AUTO) 311 K/uL (130-400); RED BLOOD CELL COUNT(AUTO) 3.75 MIL/uL (4.50-6.20); RED CELL DISTRIBUTION WIDTH 16.7 % (11.0-15.5); WHITE BLOOD COUNT (AUTO) 9.8 K/uL (4.8-10.8)
[2024-10-16 07:19] LABS: ASPARTATE AMINOTRANSFERASE 13.0 U/L (10-37); CREATININE 2.5 mg/dL (0.5-1.3); GLOMERULAR FILTR. RATE CALC 31.0 mL/min (>90); GLUCOSE,RANDOM 295.0 mg/dL (70-105); SODIUM SERUM 137.0 mmol/L (136-145); TOTAL PROTEIN, SERUM 5.7 g/dL (6.0-8.3); UREA NITROGEN, BLOOD 34.0 mg/dL (7-18)
[2024-10-16] MEDS: ASPIRIN 81 MG EC TAB PO SCH (08:10)
--- NOTE | 2024-10-16 09:36 | HMCIMG ---
EXAM: Non-contrast CT examination of the chest. CLINICAL HISTORY: Respiratory failure. TECHNIQUE: Thin collimated axial CT images of the chest were obtained, and sagittal and coronal reformatted images were also submitted. A CT scan is done according to ALARA (As Low as Reasonably Achievable). CONTRAST USED: None. COMPARISON: CT chest, dated 05/04/2022. FINDINGS: There is moderate scarring with interstitial thickening in both the upper lobes and, right middle lobe. Similar milder changes are in both the lower lobes. 0.3 cm left lower lobe pulmonary nodule (series 3, image 31). Mild bilateral pleural effusions. No pericardial effusion. The heart size is within normal limits. There is patchy atherosclerotic calcification of the aorta and coronary arteries. Prominent pulmonary arteries. The main pulmonary artery measures 3.3 cm. No axillary, supraclavicular, or mediastinal lymphadenopathy. Limited views of the upper abdomen demonstrate no abnormality. No acute or suspicious osseous abnormality. IMPRESSION: 1. Moderate bilateral interstitial lung disease with fibrosis predominantly in the upper lobes. 2. 0.3 cm left lower lobe pulmonary nodule. LUNG RADS 2: Follow up in 12 months with LDCT. 3. Mild bilateral pleural effusions. No pulmonary infiltrates. 4. Prominent pulmonary arteries, suggesting pulmonary arterial hypertension. 5. Atherosclerosis and coronary artery disease. /Jeaneth
--- NOTE | 2024-10-16 10:44 | PN ---
[facility] PROGRESS NOTE Date Patient Seen: Oct 16, 2024 Time of Visit: 10:33 Supervising Physician: [Dr. Mary Flores Primary Care Physician: [ ] Outpatient Specialists: [ ] Inpatient Consults: [BIS PROBLEM LIST: Acute on chronic hypoxemic respiratory failure History of COVID-19 with lung scarring in 2019 Interstitial lung disease with fibrosis Cardiac disease and history of 3 stents placed Type 2 diabetes with hyperglycemia Essential hypertension Hyperlipidemia Gastritis Obesity PLAN SUMMARY: Supplemental oxygen as needed Wean off as tolerated Duo nebs every 4 hours Pulmicort b.i.d. Continue Rocephin Continue doxycycline Solu-Medrol 40 mg IV every8 hours Cardiology consult for right heart cath 2/2 pulmonary hypertension 6 minute walk test for home O2 eval prior to discharge Outpatient follow up in Pulmonary Clinic1 week post discharge Dispo: As per attending INTERVAL HISTORY: This is a 49-year-old male presents in ED with chief complaints of shortness a breath. 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 Patient was recently hospitalized at [facility] for similar symptoms. Patient is not home oxygen dependent. Patient stated he does not meet criteria for home oxygen in the past. Patient has a plus two edema to lower extremities reports he was on diuretics and was placed on hold per his PCP. Patient has cardiac issues x3 stents he is on [id number] mg daily atorvastatin, Ranexa 500 every12 hour which were reviewed from external medication history. ER workup was consistent for UTI. Imaging checks x-ray congestion pulmonary edema. Labs reviewed BNP 110, patient was placed on3 L nasal cannula for this reason we are consulted. Patient is seen sitting up at the side of the bed appears to be weak with shortness on breath we will communicating. Patient reports he has been dealing with this problem since COVID in 2019 however is progressively getting worse. Patient has been hospitalized on several occasions and then discharged home. Patient admits he has never followed up with a frame runner. Patient is currently on2 L nasal cannula and doing well. Requested set of ABGs and a PO2 with a 46.3. Patient was noted to have bilateral lower extremity edema. Recommend obtain a 2D echo. Recommended CT of the chest. Continue Rocephin. Add doxycycline. Short course of Solu-Medrol 40 mg every 8 hours. Obtain a CRP and ESR. Agree with Pulmicort. Add Atrovent every 4 hours. Obtain a 6 minute walk test for home O2 eval prior to discharge. Patient advised on the importance of outpatient follow up in Pulmonary Clinic. We will continue to follow with you. 10/16 - patient is seen sitting up in bed continues to be weak and hypoxemic requiring2 L via nasal cannula. Patient reports continues with dyspnea with minimal exertion. No acute changes reported overnight. Patient's CT scan of the chest shows moderate bilateral interstitial lung disease with fibrosis in the upper lobes. 0.2 cm left lower lobe pulmonary nodule recommendations are to follow up in 12 months, mild bilateral pleural effusions. No pulmonary infiltrates. Pulmonary arterial hypertension. Recommend continue with high- dose steroids, IV antibiotics and give trial of Lasix 40 mg q.12 x4 doses. Recommend to consult cardiology for right heart cath to evaluate pulmonary hypertension. Patient will require OFEV and Tyvaso which will be arranged as outpt. Patient will require an outpatient follow up in Pulmonary Clinic one week post discharge. Request a 6 minute walk test prior to discharge for home O2 eval. REVIEW OF SYSTEMS: 12 point ROS reviewed with patient. Pertinent positives mentioned above. Otherwise negative. PHYSICAL EXAM: GENERAL: alert, weak, awake oriented x 3 HEENT: EOMI, Sclera non icteric, moist mucosa NECK: Supple, no JVD, trachea midline LUNGS: Clear breath sounds bilaterally. No wheezes HEART: Regular rate and rhythm. Normal S1 and S2, without murmurs ABD: Abdomen soft, nontender. Bowel sounds present EXT: No clubbing cyanosis or edema NEURO: Alert and oriented to person, follows commands Vital Signs (last 8hr) Date Time Temp Pulse Resp B/P (MAP) Pulse Ox O2 Delivery O2 Flow Rate FiO2 10/16/24 08:11 166/95 10/16/24 08:00 97.9 96 20 166/95 100 Room Air 21 10/16/24 07:04 95 18 10/16/24 07:04 95 18 N/Cannula Low lpm 2.0 28 10/16/24 04:00 97.5 97 18 171/104 97 Room Air LABS: Hematology Labs: Test 10/16/24 06:13 10/15/24 04:12 Range/Units White Blood Count 9.8 4.8-10.8 K/uL Red Blood Count 3.75 L 4.50-6.20 MIL/uL Hemoglobin 10.9 L 14.0-18.0 g/dL Hematocrit 33.2 L 42-54 % Mean Corpuscular Volume 88.5 79-99 fL Mean Corpuscular Hemoglobin 29.1 27.0-33.0 pg Mean Corpuscular Hemoglobin Concent 32.8 32.0-36.0 g/dL Red Cell Distribution Width 16.7 H 11.0-15.5 % Platelet Count 311 130-400 K/uL Mean Platelet Volume 10.5 7.5-10.5 fL Immature Granulocyte % (Auto) 3.3 H 0-1 % Neutrophils (%) (Auto) 86.7 H 40.0-77.0 % Lymphocytes (%) (Auto) 8.0 L 21.0-51.0 % Monocytes (%) (Auto) 1.7 L 3.0-13.0 % Eosinophils (%) (Auto) 0.0 0.0-8.0 % Basophils (%) (Auto) 0.3 0.0-5.0 % Neutrophils # (Auto) 8.5 H 1.8-7.7 K/uL Lymphocytes # (Auto) 0.8 L 1.0-4.8 K/uL Monocytes # (Auto) 0.2 0.1-1.0 K/uL Eosinophils # (Auto) 0.00 0.00-0.70 K/uL Basophils # (Auto) 0.03 0.00-0.20 K/uL Absolute Immature Granulocyte (auto 0.32 0-1 K/uL Nucleated Red Blood Cells 0.0 0.0-0.19 % White Cell Morphology Comment See comments Erythrocyte Sedimentation Rate 74 H 0-15 MM/HR Reticulocyte Count (auto) 4.39373 H 0.42-2.23 % Immature Reticulocyte Fraction 21.20 H 0.18-0.48 % Chemistry Labs: Test 10/16/24 06:13 10/16/24 05:25 10/15/24 04:12 10/14/24 12:57 Range/Units Sodium Level 137 136-145 mmol/L Potassium Level 4.3 3.5-5.1 mmol/L Chloride Level 107 101-111 mmol/L Carbon Dioxide Level 25 21-32 mmol/L Blood Urea Nitrogen 34 H 7-18 mg/dL Creatinine 2.5 H 0.5-1.3 mg/dL Glomerular Filtration Rate Calc 31 >90 mL/min Random Glucose 295 H 70-105 mg/dL Total Calcium 8.2 L 8.5-10.1 mg/dL Magnesium Level 2.00 1.80-2.40 mg/dL Total Bilirubin 0.4 0.2-1.0 mg/dL Aspartate Amino Transf (AST/SGOT) 13 10-37 U/L Alanine Aminotransferase (ALT/SGPT) 19 12-78 U/L Alkaline Phosphatase 79 50-136 U/L C-Reactive Protein, Quantitative 23.70 H 0.5-3.0 mg/L Total Protein 5.7 L 6.0-8.3 g/dL Albumin 1.8 L 3.5-5.0 g/dL Whole Blood Glucose 271 H 70-110 MG/DL Iron Level 43 L 65-175 mcg/dL Total Iron Binding Capacity 190 L 250-450 mcg/dL Percent Iron Saturation 22.6 L 30-44 % Ferritin 51 30-400 ng/mL B-Type Natriuretic Peptide 92 0-100 pg/mL Vitamin B12 Level 280 193-986 pg/mL Folic Acid (LAB) 7.70 2-20 ng/mL Troponin I High Sensitivity 22 4-75 ng/L Coagulation Labs: Test 10/14/24 15:43 Range/Units D-Dimer Quantitative (PE/DVT) 625 *H 0-500 ng/mL DIAGNOSTICS / RADIOLOGY RESULTS: PATIENT: BORIS YE JR MR#: [id number] : 1975 SEX: M AGE: 49 LOCATION: [facility] ORDER [id number] STATUS: ADM IN REPORT#: [id number] SERVICE [id number] REASON: resp failure ORDERING PHYSICIAN: ELIZABETH SOTO NP PROCEDURE: CHEST WO - CT CHEST W/O CONTRAST EXAM: Non-contrast CT examination of the chest. CLINICAL HISTORY: Respiratory failure. TECHNIQUE: Thin collimated axial CT images of the chest were obtained, and sagittal and coronal reformatted images were also submitted. A CT scan is done according to ALARA (As Low as Reasonably Achievable). CONTRAST USED: None. COMPARISON: CT chest, dated 05/04/2022. FINDINGS: There is moderate scarring with interstitial thickening in both the upper lobes and, right middle lobe. Similar milder changes are in both the lower lobes. 0.3 cm left lower lobe pulmonary nodule (series 3, image 31). Mild bilateral pleural effusions. No pericardial effusion. The heart size is within normal limits. There is patchy atherosclerotic calcification of the aorta and coronary arteries. Prominent pulmonary arteries. The main pulmonary artery measures 3.3 cm. No axillary, supraclavicular, or mediastinal lymphadenopathy. Limited views of the upper abdomen demonstrate no abnormality. No acute or suspicious osseous abnormality. IMPRESSION: 1. Moderate bilateral interstitial lung disease with fibrosis predominantly in the upper lobes. 2. 0.3 cm left lower lobe pulmonary nodule. LUNG RADS 2: Follow up in 12 months with LDCT. 3. Mild bilateral pleural effusions. No pulmonary infiltrates. 4. Prominent pulmonary arteries, suggesting pulmonary arterial hypertension. 5. Atherosclerosis and coronary artery disease. /[place] DICTATED BY: CHRISTELLE SINCLAIR MD DATE: 10/16/241034 ELECTRONICALLY SIGNED BY: CHRISTELLE SINCLAIR MD DATE: 10/16/241034 PLAN NEURO: Minimize central acting medications as possible. Maintain fall precautions, adequate lighting during the day PULMONARY: Supplemental 02 as needed. Maintain aspiration precautions at all times CARDIOVASCULAR: Follow hemodynamics. Vital signs per facility protocol GI & NUTRITION: Continue with nutritional support. Continue stool softeners and laxatives as needed. KIDNEYS & ELECTROLYTES: Strict monitoring of intake, output and overall fluid balance. Avoid nephrotoxic medications to the extent possible. Medications to be dosed according to renal function. Monitor electrolytes and replace as needed ENDOCRINE: Maintain blood glucose between 100-180 at all times. Hypoglycemia protocol in place INFECTIOUS DISEASE: Trend temperature, WBC and procalcitonin level Follow cultures, deescalate antibiotics as soon as possible. Panculture if new onset fever ONCOLOGY/HEMATOLOGY/COAGULATION: Monitor for s/s of bleeding Monitor hemoglobin, coagulation studies as needed SKIN: Pressure ulcer prevention per facility protocol Specialty mattress ORTHO/REHAB: Continue PT/OT Prophylaxis: Continue GI and DVT prophylaxis Code Status: Full Resuscitation Disposition: As per attending ATTESTATION BY PHYSICIAN The patient has been seen and evaluated, the case has been discussed with the FORGE HEATER, I agree with the clinical findings and plan of care. Td Flores MD, ECTOR N FORGE HEATER Oct 16, 2024 10:44
--- NOTE | 2024-10-16 14:00 | NUR ---
PT REFUSED STATING HE HAD JUST PERFORMED A 6MWT AND WAS WORN OUT. CONFIRMED THIS WITH NURSE TAHIRA. Addendum: 10/16/24 at 1523 by EARLENE DE LUNA PT Amended: Links added.
--- NOTE | 2024-10-16 17:09 | CONS ---
Cardiology consultation Date of Service: Oct 16, 2024 HISTORY OF PRESENT ILLNESS: 49-year-old male well known to me from prior inpatient and outpatient cardiac evaluations last seen in the office April 16, 2024. He has known coronary artery disease status post PCI of the proximal and mid LAD and circumflex May 26, 2022 with residual distal RCA stenosis, Longstanding uncontrolled diabetes due to patient's noncompliance, hypertension and dyslipidemia. For the past 6 months, the patient has noted gradual bilateral pedal edema that progressed to anasarca. He admits to easy fatigability And shortness of breath with minimal exertion. No orthopnea PND, fever chills cough etc.. EKG done showed sinus rhythm repolarization abnormalities Mild elevation of BNP 110 Echocardiogram re-reviewed which actually showed normal LV and right ventricular ejection fraction, no significant valvular abnormalities, No evidence of pericardial constriction or restriction, normal right ventricular and pulmonary artery pressures. PAST MEDICAL HISTORY: Coronary artery disease status post proximal and mid LAD and circumflex stent May 26, 2022 Longstanding uncontrolled diabetes Hypertension, diabetes type 2 Chronic Kidney disease Chronic lung disease with lung scarring PAST SURGICAL HISTORY: appendectomy PAST SOCIAL HISTORY: Former smoker nonalcohol drinker FAMILY HISTORY: Negative for premature coronary artery disease or atrial fibrillation Coded Allergies: No Known Allergies (Unverified Allergy, Unknown, 05/04/22) Review of systems: No fever no chills positive for weight gain No blurring or dizziness or vision no dysphagia no sore throat No chest pain no palpitations no PND positive for edema no claudication Positive for shortness of breath + cough no hemoptysis Positive abdominal distention no nausea vomiting melena hematochezia diarrhea No dysuria no hesitancy No myalgias or arthralgia No rashes No easy bruising Positive for cold intolerance positive for polyuria and polydipsia PHYSICAL EXAM Edematous male in no respiratory distress able to lay flat comfortably GENERAL APPEARANCE: The patient is awake, alert, and oriented, HEENT: Face is symmetric. Pupils are equal and reactive. Extraocular movements are intact. NECK: Supple. No JVD. No thyromegaly. No submental, submandibular, pre- /postauricular, occipital or supraclavicular lymphadenopathy. CHEST: Normal chest expansion. No Telemetry. LUNGS: Absence of any rales, rhonchi +wheezing. CARDIOVASCULAR: Regular rate and rhythm S1 and S2 normal. One to 2/6 tricuspid regurgitation murmur no rubs or gallops ABDOMEN: Soft, nontender, and nondistended. There is no rebound, voluntary guarding, or rigidity. EXTREMITIES: + 3 edema and not cyanotic. No clubbing. Difficult to assess distal pulses SKIN: No skin breakdown. Neurologic exam: Awake alert oriented x3 Laboratory data: Albumin 1.8 creatinine 2.7 spot urine protein 300 mg Impression: Anasarca in this patient with likely diabetic nephropathy causing nephrotic syndrome With underlying chronic diastolic heart failure with no evidence of pericardial constriction or restriction And no pulmonary hypertension Diagnosis 1. Anasarca with pedal edema from protein losing nephropathy suspect diabetic nephropathy 2. Chronic heart failure with preserved ejection fraction, no evidence of pericardial constriction or restriction 3. Chronic coronary artery disease prior LAD and circumflex stents 2022 4. Chronic hypertension 5. Uncontrolled diabetes Recommendations: Discontinue amlodipine as a contributory cause of the patient's edema. Send 24 hour urine protein to determine if there is indeed nephrotic range proteinuria more than 2 g. Recommend to consult patient's antisqueak applier. Nephrilysyn inhibitor, WANDA inhibitors and ARB are contraindicated at this time Prioritize diuretics and yield to antisqueak applier Consider lower venous duplex scan to evaluate for deep venous reflux. Medical management for ischemic heart disease at this time. DVT prophylaxis given increased risk of thrombosis No further cardiac testing needed at this time Once discharged follow up with Dr. Tran in 1-2 weeks Vitals/Labs Vital Signs Date Time Temp Pulse Resp B/P (MAP) Pulse Ox O2 Delivery O2 Flow Rate FiO2 10/16/24 16:00 98.2 80 20 125/63 97 Nasal Cannula 2.0 10/16/24 11:00 21 21 28 Laboratory Tests 10/16/24 06:13 Allergies: Coded Allergies: No Known Allergies (Unverified Allergy, Unknown, 05/04/22) CRISS TRAN MD Oct 16, 2024 17:09
--- NOTE | 2024-10-16 18:15 | CONS ---
REFERRING PHYSICIAN: Torrey Peraza MD REASON FOR CONSULTATION: Renal failure. HISTORY OF PRESENT ILLNESS: A 49-year-old male presents to the hospital with increasing shortness of breath. The patient with previous COVID infection. The patient was noted to have pulmonary fibrosis with interstitial lung disease on CT scan. The patient with persistent hypoxia. Laboratory values revealed an elevated BUN and creatinine. He is being seen in consultation for all of the above. The patient is also being seen by Cardiology. PAST MEDICAL HISTORY: COVID infection, diabetes mellitus, hypertension. PAST SURGICAL HISTORY: Coronary catheterization. SOCIAL HISTORY: No alcohol or tobacco use. He lives independently. FAMILY HISTORY: There is no renal disease in the family. ALLERGIES: There are no allergies. MEDICATIONS: Noted. REVIEW OF SYSTEMS: CONSTITUTIONAL: He is feeling weak and tired. HEENT: No change in vision. No change in hearing. CARDIOVASCULAR: There is no current chest pain or palpitations. PULMONARY: As described above. GASTROINTESTINAL: He is tolerating a diet. MUSCULOSKELETAL: Complaints of weakness. NEUROLOGIC: No seizures or focal deficits. PSYCHIATRIC: No history of hallucination or psychosis. ENDOCRINE: Diabetes mellitus. No history of thyroid disease. HEME: No history of anemia or malignancy. PHYSICAL EXAMINATION: VITAL SIGNS: Blood pressure is 130/77, pulse in the 80s. He is afebrile. GENERAL: He is a chronically ill male, young, lying in bed on the medical floor. HEENT: Head is atraumatic. Pupils are equal, roving to light. Oropharynx is without exudate. Nares clear. NECK: There is no JVP. There is no thyromegaly. No mass. CARDIOVASCULAR: Regular. There is no S3 or S4 gallop. LUNGS: Coarse with equal thoracic movement. ABDOMEN: Soft, nontender, nontender. EXTREMITIES: Reveal no clubbing, no cyanosis. NEUROLOGICAL: He is awake. He is alert. He is oriented. SKIN: Reveals no rashes or nodules. BACK: There is no CVA tenderness. No back deformities. LABORATORY DATA: Sodium 141, potassium 3.7, BUN 37, creatinine is 2.5. Hemoglobin 10, hematocrit 33. Urinalysis does reveal some protein in the urine. IMPRESSION: * Acute on chronic renal failure. * Diabetes mellitus. * Hypertension. * History of pulmonary fibrosis. PLAN: The patient presents with significant renal dysfunction. The patient does have some proteinuria on urinalysis. We will send off a spot urine for protein and creatinine to quantitate any amount of proteinuria. All labs can be repeated in the morning. The patient is also being seen by Cardiology. The patient's CT scan reveals significant pulmonary fibrosis. Workup is ongoing per Pulmonary Service and we will continue to follow the patient closely. All labs can be repeated in the morning. The patient with multiple questions, all of which were answered. TID: [id number] RECEIPT: [id number]
[2024-10-16 19:16] LABS: PROTEIN,URINE RANDOM 1295.2 mg/dL (0-11.9)
[2024-10-16 19:21] LABS: CREATININE,URINE RANDOM 125.57 mg/dL (30-135)
--- NOTE | 2024-10-16 19:24 | NUR ---
CM NOTE/[facility] CM spoke to patient regarding home o2 needs. Patient aware of pending arrangements. CM offered in network DME options. Obtained SALTY for any in network DME agency. CM sent referral to [employer]. CM explained to patient that request sent for traditional home o2 setup vs POC. Advised patient that [employer] with verify what will be authorized by insurance. Verbalized understanding. CM to f/u. Addendum: 10/16/24 at 1927 by EVELYN JAVED CM Amended: Links added.
[2024-10-17] VITALS (9 sets, daily range): BP systolic 142–162; BP diastolic 76–79; PULSE 84–88; RESP 17–24; TEMP 97.5–97.9; O2SAT 95–97
[2024-10-17 06:15] LABS: IMMATURE GRANULOCYTE ABSOLUTE 0.23 K/uL (0-1); NUCLEATED RED BLOOD CELLS 0.0 % (0.0-0.19); PLATELET COUNT (AUTO) 274 K/uL (130-400); RED BLOOD CELL COUNT(AUTO) 3.34 MIL/uL (4.50-6.20); RED CELL DISTRIBUTION WIDTH 16.7 % (11.0-15.5); WHITE BLOOD COUNT (AUTO) 13.2 K/uL (4.8-10.8)
[2024-10-17 06:30] LABS: CREATININE 3.1 mg/dL (0.5-1.3); GLOMERULAR FILTR. RATE CALC 24.0 mL/min (>90); GLUCOSE,RANDOM 268.0 mg/dL (70-105); PHOSPHORUS 4.5 mg/dL (2.5-4.9); SODIUM SERUM 139.0 mmol/L (136-145); UREA NITROGEN, BLOOD 48.0 mg/dL (7-18)
[2024-10-17] MEDS: Solu-medROL 40MG VIAL IVP SCH (08:45)
[2024-10-17] MEDS ORDERED: DOXY100C5 PO (11:32)
[2024-10-17] MEDS ORDERED: CEFD300C3 PO (11:32)
[2024-10-17] MEDS ORDERED: METH4TAB3 PO (11:43)
--- NOTE | 2024-10-17 11:47 | DS ---
Discharge Summary Hospital Course Summary: admission date: 10/14/2024 PCP: Vonnie Goncalves CC: Shortness of breath This is a 49-year-old male presents in ED with chief complaints of shortness a breath. 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 Patient was recently hospitalized at [facility] for similar symptoms. Patient is not home oxygen dependent. Patient stated he does not meet criteria for home oxygen in the past. Patient has a plus two edema to lower extremities reports he was on diuretics and was placed on hold per his PCP. Patient has cardiac issues x3 stents he is on Ofyhaa03 mg daily atorvastatin, Ranexa 500 every12 hour which I reviewed from external medication history. ER workup was consistent for UTI. Imaging checks x-ray congestion pulmonary edema. Labs reviewed BNP 110, 10/15 patient is lying in bed continue dyspneic during my evaluation waiting for V/Q scan if negative I encouraged patient out bed to chair throughout the day avoid main in bed most of the day. Waiting for cultures urine. 10/16/24 patient continues on oxygen supplemental dyspnea on minimal exertion 6 minute [address] with desaturation we will need home oxygen. Echo with EF of 45-50% field placement director's was consulted patient continues on diuretics edematous to lower extremities. Kidneys on worsening we will bring head teller's. Patient denied chest pain palpitation. Encourage out of bed to chair as tolerated 10/17/2024. Patient was seen by field placement director's appreciate their input. Chronic heart failure with preserved ejection fraction, no evidence of pericardial constriction or restriction and Nephrilysyn inhibitor, WANDA inhibitors and ARB are contraindicated at this time The patient will need to follow-up with field placement director's one-week. Patient qualify for home oxygen 2-3 liters discharge instructions given. Patient to follow-up with pulmonary clinic upon discharge. Patient was instructed he needs to be follow-up by field placement director's and primary head teller's Dr Hesham WILEY patient we will need lung transplant clearance for the future. Edema to lower extremities improved on this admission patient receive four doses of Lasix. Patient will be discharged on oral antibiotics cefdinir and doxycycline in we will continue with p.o. steroid Medrol Dosepak hemodynamically stable for discharge. Procedure(s): REASON: resp failure ORDERING PHYSICIAN: ELIZABETH SOTO NP PROCEDURE: CHEST WO - CT CHEST W/O CONTRAST EXAM: Non-contrast CT examination of the chest. CLINICAL HISTORY: Respiratory failure. TECHNIQUE: Thin collimated axial CT images of the chest were obtained, and sagittal and coronal reformatted images were also submitted. A CT scan is done according to ALARA (As Low as Reasonably Achievable). CONTRAST USED: None. COMPARISON: CT chest, dated 05/04/2022. FINDINGS: There is moderate scarring with interstitial thickening in both the upper lobes and, right middle lobe. Similar milder changes are in both the lower lobes. 0.3 cm left lower lobe pulmonary nodule (series 3, image 31). Mild bilateral pleural effusions. No pericardial effusion. The heart size is within normal limits. There is patchy atherosclerotic calcification of the aorta and coronary arteries. Prominent pulmonary arteries. The main pulmonary artery measures 3.3 cm. No axillary, supraclavicular, or mediastinal lymphadenopathy. Limited views of the upper abdomen demonstrate no abnormality. No acute or suspicious osseous abnormality. IMPRESSION: 1. Moderate bilateral interstitial lung disease with fibrosis predominantly in the upper lobes. 2. 0.3 cm left lower lobe pulmonary nodule. LUNG RADS 2: Follow up in 12 months with LDCT. 3. Mild bilateral pleural effusions. No pulmonary infiltrates. 4. Prominent pulmonary arteries, suggesting pulmonary arterial hypertension. 5. Atherosclerosis and coronary artery disease. /[place] REASON: shortness of breath ORDERING PHYSICIAN: VALERIO OROURKE NP PROCEDURE: ECHO [facility] - ECHO 2-D COMPLETE APPROVED REPORT EXAM: Two-dimensional and M-mode echocardiogram with Doppler and color Doppler. INDICATION ICD: Shortness of breath R06.02 2D Dimensions RVDd 4.1 cm LVEF(%) 74.1 (>50%) LVED Vol(simp.) 152.5 mL IVSd 0.8 (0.7-1.1cm) FS(%) 43 % LVES Vol(simp.) 81.0 mL LVDd 4.5 (3.8-5.6cm) LA (2D) 4.3 (1.6-4.0cm) LVEF(%, simp.) 47 % PWd 1.2 (0.7-1.1cm) Ao Root(2D) 3.2 (2.0-3.7cm) LA ESV INDEX (BP) 49.24 mL/m2 LVDs 2.6 (2.5-4.0cm) LVOT diam 2.4 (1.8-2.4cm) Deformation Strain Apical 4 -13.0 % Apical 2 -10.0 % Apical 3 -10.8 % Global Strain -11.3 % M-Mode Dimensions EPSS 1.1 cm LA (MM) 4.2 (1.6-4.0cm) Ao Root(MM) 3.7 (2.0-3.7cm) Aortic Valve AoV Vmax 1.3 m/s Ao Peak GR 7.1 mmHg LVOT Vmax 1.1 m/s AoV VTI 0.3 m Ao Mean GR 4.5 mmHg LVOT VTI 0.23 m AMILCAR (VMAX) 3.81 cm2 AMILCAR (VTI) 3.9 cm2 Mitral Valve MV E Vmax 119.4 cm/s DECEL Time 163 ms MV A Vmax 113.7 cm/s P 1/2 T 34 ms E/A ratio 1.1 MVA (PHT) 6.4 cm2 TDI E/E' Medial 39.0 E/E' Lateral 55.5 Medial E' Peak V 3.06 cm/s Lateral E' Peak V 2.15 cm/s Pulmonary Valve PV Vmax 1.1 m/s PV VTI 0.17 m PV Mean GR 2.5 mmHg PV Peak GR 4.6 mmHg Left Ventricle Left ventricular cavity size is normal. Mild increased posterior LV wall thickness. LVEF is 45-50%. E-a fusion Right Ventricle The right ventricle is normal size. Right ventricular systolic function is mildly reduced. Atria The left atrium is moderately dilated. The right atrium size is normal. Aortic Valve The aortic valve is normal in structure. No aortic regurgitation is present. There is no aortic valvular stenosis. Mitral Valve The mitral valve is normal in structure. There is no mitral valve regurgitation noted. There is no mitral valve stenosis. Tricuspid Valve The tricuspid valve is normal in structure. There is no tricuspid valve regurgitation noted. Pulmonic Valve The pulmonary valve is normal in structure. There is no pulmonic valvular regurgitation. Great Vessels The aortic root is normal in size. The IVC is normal in size and collapses >50% with inspiration. Pericardium Trace pericardial effusion. Conclusion Left ventricular cavity size is normal. Mild increased posterior LV wall thickness. LVEF is 45-50%. E-a fusion The right ventricle is normal size. Right ventricular systolic function is mildly reduced. The left atrium is moderately dilated. The right atrium size is normal. No valvular pathology. Trace pericardial effusion. REASON: ELEVATED D DIMER W/RENAL INJURY ORDERING PHYSICIAN: VALERIO OROURKE NP PROCEDURE: PULM VQ - NM PULMONARY/LUNG VQ SCAN EXAM: NM Lung Perfusion and Ventilation Scan. CLINICAL HISTORY: ELEVATED D DIMER W/RENAL INJURY TECHNIQUE: Ventilation images of the lungs were obtained after inhalation of the radiopharmceutical. Then, radiolabeled MAA was administered intravenously and planar images of the lungs were obtained in multiple projections. COMPARISON: None provided. FINDINGS: VENTILATION: No segmental ventilation defect. PERFUSION: No segmental perfusion defect. IMPRESSION: Normal VQ scan based on modified PIOPED criteria. REASON: swelling to lower ext ORDERING PHYSICIAN: VALERIO OROURKE NP PROCEDURE: VENOUS PARVIZ - US VENOUS DOPPLER BILATERAL EXAMINATION: SPECTRAL DOPPLER ULTRASOUND EXAMINATION OF THE BILATERAL LOWER EXTREMITY VEINS. CLINICAL HISTORY: Swelling, to rule out DVT. COMPARISON: None provided. TECHNIQUE: Real-time ultrasound scan of the veins of the bilateral lower extremity with color Doppler flow, spectral waveform analysis and compression. FINDINGS: DEEP VEINS: The common femoral, superficial femoral, and popliteal veins are echolucent and compressible. There is normal color Doppler flow throughout. The visualized calf veins appear patent. SUPERFICIAL VEINS: The greater saphenous veins are patent and compressible. SOFT TISSUES: No popliteal fossa cyst or other abnormalities. There is subcutaneous edema bilaterally. IMPRESSION: No deep venous thrombosis evident in the bilateral lower extremity. No superficial thrombophlebitis in the bilateral lower extremity. Subcutaneous edema in the bilaterally. REASON: marisabel ORDERING PHYSICIAN: VALERIO OROURKE NP PROCEDURE: RENAL - US RENAL SONOGRAM Exam: Renal Ultrasound History: MARISABEL Comparison: None Technique: Grayscale and color Doppler imaging was performed. Static images were obtained. Findings: Right kidney: The right kidney is normal in size, contour, and echogenicity. It measures 13.2 cm in length. No calculi or masses are identified. There is no evidence of hydronephrosis. Left kidney: The left kidney is normal in size, contour, and echogenicity. It measures 11.9 cm in length. No calculi or masses are identified. There is no evidence of hydronephrosis. Urinary bladder: The bladder is normal in contour and appearance. Impression: No sonographic abnormality. Assessment/Plan: discharged dx's: Acute respiratory failure with hypoxia requiring oxygen supplemental POA acute on Chronic CHF reduced ef: LVEF is 45-50%. POA suspecting PE ruled out POA Dyspnea on exertion POA will be discharged on home oxygen UTI POA POA discharged on oral abts see below MARISABEL on CRF will follow up with primary head teller: [facility] Dahl from [facility] Anemia on CRF POA Adult obesity class II POA Severe protein calorie malnutrition POA Hypomagnesemia POA PLAN: ADMISSION DATE: 10/14/2024 DISCHARGE DATE: 10/17/2024 DISPOSITION: Home CONDITION: Stable SCOURING MACHINE TENDER(S): [employer], field placement director's, commercial insurance underwriter's FOLLOW UP APPOINTMENT(S): Pulmonary Clinic one week post discharge.Catherine which will be arranged as outpt. PCP 2-3 days head teller's his primary Dr. Hesham Nunez, DR Burnham 1-2 wks. PROCEDURES: IMAGING (S) report attached to summary : Echo, lung scan V/Q, venous Dopplers, renal ultrasound MICROBIOLOGY: report attached to summary; ACTIVITY: Ad mónica as tolerated encouraged to use IS while awake Discharged with home oxygen 2-3 L HOME MEDICATIONS remain the same CHANGES ON HOME MEDICATIONS none NEW MEDICATIONS oral antibiotics cefdinir 300 mg p.o. b.i.d. seven days and doxycycline 100 b.i.d. seven days. prednisone 20 mg p.o. daily for five days TEACHING: Home oxygen safety instructions. Fluid restriction avoid sodium. Emergency instructions: The patient was instructed to present to the nearest Emergency Department or call 911 should their symptoms return or worsen. Home Medications: Reported Medications Carvedilol (Carvedilol) 25 Mg Tablet, 1 TAB PO BID 10/14/24 Pantoprazole Sodium (Pantoprazole Sodium) 40 Mg Tablet.dr, 1 TAB PO BID 10/14/24 Aspirin (ASPIRIN 81 MG ECTAB) 81 Mg Ectab, 81 MG PO DAILY, TAB.EC 10/14/24 Atorvastatin Calcium (Atorvastatin Calcium) 40 Mg Tablet, 1 TAB PO HS 10/14/24 Clopidogrel Bisulfate (Clopidogrel) 75 Mg Tablet, 1 TAB PO DAILY 10/14/24 Ranolazine (Ranolazine ER) 500 Mg Tab.er.12h, 1 TAB PO BID 10/14/24 Metoclopramide HCl (Metoclopramide HCl) 10 Mg Tablet, 1 TAB PO DAILY 10/14/24 Hydralazine HCl (Apresoline) 50 Mg Tab, 1 TAB PO BID 10/14/24 Trazodone HCl (Desyrel) 50 Mg Tab, 1 TAB PO HS 10/14/24 Budesonide (Budesonide) 0.5 Mg/2 Ml Ampul.neb, 1 VIAL NEB BID 10/14/24 Ipratropium/Albuterol Sulfate (Iprat-Albut 0.5-3(2.5) mg/3 ml) 0.5 Mg-3 Mg (2.5 Mg Base)/3 Ml Ampul.neb, 1 VIAL NEB Q6H 10/14/24 Insulin Glargine,Hum.rec.anlog (Lantus) 100 Unit/Ml Inj, 50 UNITS SQ BID, ML 10/14/24 Insulin Lispro (Humalog) 100 Unit/Ml Vial, 10 UNITS SQ TIDAC 10/14/24 New Medications: Cefdinir (Cefdinir) 300 Mg Capsule 1 CAP PO BID for 7 Days, #14 CAP 0 Refills Doxycycline Hyclate (Doxycycline Hyclate) 100 Mg Capsule 1 CAP PO BID for 7 Days, #14 CAP 0 Refills Methylprednisolone (Medrol) 4 Mg Tab.ds.pk 1 TAB PO AD for 6 Days, #21 TAB 0 Refills 6 on day 1 then reduce by one tablet daily until gone Continued Medications: Aspirin (Aspirin 81 Mg Ectab) 81 Mg Ectab 81 MG PO DAILY, TAB.EC Atorvastatin Calcium (Atorvastatin Calcium) 40 Mg Tablet 1 TAB PO HS Budesonide (Budesonide) 0.5 Mg/2 Ml Ampul.neb 1 VIAL NEB BID Carvedilol (Carvedilol) 25 Mg Tablet 1 TAB PO BID Clopidogrel Bisulfate (Clopidogrel) 75 Mg Tablet 1 TAB PO DAILY Hydralazine HCl (Apresoline) 50 Mg Tab 1 TAB PO BID Insulin Glargine,Hum.rec.anlog (Lantus) 100 Unit/Ml Inj 50 UNITS SQ BID, ML Insulin Lispro (Humalog) 100 Unit/Ml Vial 10 UNITS SQ TIDAC Ipratropium/Albuterol Sulfate (Iprat-Albut 0.5-3(2.5) mg/3 ml) 0.5 Mg-3 Mg (2.5 Mg Base)/3 Ml Ampul.neb 1 VIAL NEB Q6H Metoclopramide HCl (Metoclopramide HCl) 10 Mg Tablet 1 TAB PO DAILY Pantoprazole Sodium (Pantoprazole Sodium) 40 Mg Tablet.dr 1 TAB PO BID Ranolazine (Ranolazine ER) 500 Mg Tab.er.12h 1 TAB PO BID Trazodone HCl (Desyrel) 50 Mg Tab 1 TAB PO HS Time spent arranging discharge: 31-60 minutes ATTESTATION BY PHYSICIAN I have seen and examined the patient. I reviewed the documentation, medical decision making, and treatment plan as noted by the mid-level provider above. I agree with the findings and plan of care. ELSA DIAZ MD, ELIZABETH NP Oct 17, 2024 11:47
--- NOTE | 2024-10-17 12:36 | PN ---
[facility] PROGRESS NOTE Date Patient Seen: Oct 17, 2024 Time of Visit: 12:31 Supervising Physician: [Dr Hoang Primary Care Physician: [ ] Outpatient Specialists: [ ] Inpatient Consults: [[facility] PROBLEM LIST: Acute on chronic hypoxemic respiratory failure History of COVID-19 with lung scarring in 2019 Interstitial lung disease with fibrosis Cardiac disease and history of 3 stents placed Type 2 diabetes with hyperglycemia Essential hypertension Hyperlipidemia Gastritis Obesity PLAN SUMMARY: Supplemental oxygen as needed Wean off as tolerated Duo nebs every 4 hours Pulmicort b.i.d. Continue Rocephin Continue doxycycline Solu-Medrol 40 mg IV every8 hours Patient will require OFEV and Tyvaso which will be arranged as outpt. Patient will eventually require a lung transplant which will be arranged as outpatient Outpatient follow up in Pulmonary Clinic1 week post discharge Dispo: As per attending INTERVAL HISTORY: This is a 49-year-old male presents in ED with chief complaints of shortness a breath. 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 Patient was recently hospitalized at [facility] for similar symptoms. Patient is not home oxygen dependent. Patient stated he does not meet criteria for home oxygen in the past. Patient has a plus two edema to lower extremities reports he was on diuretics and was placed on hold per his PCP. Patient has cardiac issues x3 stents he is on [id number] mg daily atorvastatin, Ranexa 500 every12 hour which were reviewed from external medication history. ER workup was consistent for UTI. Imaging checks x-ray congestion pulmonary edema. Labs reviewed BNP 110, patient was placed on3 L nasal cannula for this reason we are consulted. Patient is seen sitting up at the side of the bed appears to be weak with shortness on breath we will communicating. Patient reports he has been dealing with this problem since COVID in 2019 however is progressively getting worse. Patient has been hospitalized on several occasions and then discharged home. Patient admits he has never followed up with a reproduction specialist. Patient is currently on2 L nasal cannula and doing well. Requested set of ABGs and a PO2 with a 46.3. Patient was noted to have bilateral lower extremity edema. Recommend obtain a 2D echo. Recommended CT of the chest. Continue Rocephin. Add doxycycline. Short course of Solu-Medrol 40 mg every 8 hours. Obtain a CRP and ESR. Agree with Pulmicort. Add Atrovent every 4 hours. Obtain a 6 minute walk test for home O2 eval prior to discharge. Patient advised on the importance of outpatient follow up in Pulmonary Clinic. We will continue to follow with you. 10/16 - patient is seen sitting up in bed continues to be weak and hypoxemic requiring2 L via nasal cannula. Patient reports continues with dyspnea with minimal exertion. No acute changes reported overnight. Patient's CT scan of th e chest shows moderate bilateral interstitial lung disease with fibrosis in the upper lobes. 0.2 cm left lower lobe pulmonary nodule recommendations are to follow up in 12 months, mild bilateral pleural effusions. No pulmonary infiltrates. Pulmonary arterial hypertension. Recommend continue with high- dose steroids, IV antibiotics and give trial of Lasix 40 mg q.12 x4 doses. Re commend to consult cardiology for right heart cath to evaluate pulmonary hypertension. Patient will require OFEV and Tyvaso which will be arranged as outpt. Patient will require an outpatient follow up in Pulmonary Clinic one week post discharge. Request a 6 minute walk test prior to discharge for home O2 eval. 10/17 - patient is seen sitting up in bed continues to be weak and hypoxemic requiring2 L via nasal cannula. Patient had a 6 minute walk test and failed therefore home oxygen has been arranged by case management. Patient was evaluated by Cardiology and reports patient does not have pulmonary arterial hypertension therefore no need for right heart catheterization. Patient will require OFEV and Tyvaso and will be arranged as outpt. PT will eventually require a lung transplant. Patient has been advised to follow up in Pulmonary Clinic1 week post discharge. Patient may be discharged home once home oxygen has been delivered. REVIEW OF SYSTEMS: 12 point ROS reviewed with patient. Pertinent positives mentioned above. Otherwise negative. PHYSICAL EXAM: GENERAL: alert, weak, awake oriented x 3 HEENT: EOMI, Sclera non icteric, moist mucosa NECK: Supple, no JVD, trachea midline LUNGS: Clear breath sounds bilaterally. No wheezes HEART: Regular rate and rhythm. Normal S1 and S2, without murmurs ABD: Abdomen soft, nontender. Bowel sounds present EXT: No clubbing cyanosis or edema NEURO: Alert and oriented to person, follows commands Vital Signs (last 8hr) Date Time Temp Pulse Resp B/P (MAP) Pulse Ox O2 Delivery O2 Flow Rate FiO2 10/17/24 12:00 97.5 85 19 154/76 97 Room Air 21 10/17/24 11:34 84 18 N/Cannula Low lpm 2.0 10/17/24 08:46 142/79 10/17/24 07:57 97.5 86 20 142/79 99 Nasal Cannula 2.0 10/17/24 06:34 86 18 N/Cannula Low lpm 2.0 10/17/24 06:30 84 17 LABS: Hematology Labs: Test 10/17/24 06:06 10/16/24 06:13 Range/Units White Blood Count 13.2 #H 4.8-10.8 K/uL Red Blood Count 3.34 L 4.50-6.20 MIL/uL Hemoglobin 9.7 L 14.0-18.0 g/dL Hematocrit 30.4 L 42-54 % Mean Corpuscular Volume 91.0 79-99 fL Mean Corpuscular Hemoglobin 29.0 27.0-33.0 pg Mean Corpuscular Hemoglobin Concent 31.9 L 32.0-36.0 g/dL Red Cell Distribution Width 16.7 H 11.0-15.5 % Platelet Count 274 130-400 K/uL Mean Platelet Volume 10.1 7.5-10.5 fL Immature Granulocyte % (Auto) 1.7 H 0-1 % Neutrophils (%) (Auto) 88.3 H 40.0-77.0 % Lymphocytes (%) (Auto) 7.2 L 21.0-51.0 % Monocytes (%) (Auto) 2.6 L 3.0-13.0 % Eosinophils (%) (Auto) 0.0 0.0-8.0 % Basophils (%) (Auto) 0.2 0.0-5.0 % Neutrophils # (Auto) 11.7 H 1.8-7.7 K/uL Lymphocytes # (Auto) 1.0 1.0-4.8 K/uL Monocytes # (Auto) 0.3 0.1-1.0 K/uL Eosinophils # (Auto) 0.00 0.00-0.70 K/uL Basophils # (Auto) 0.02 0.00-0.20 K/uL Absolute Immature Granulocyte (auto 0.23 0-1 K/uL Nucleated Red Blood Cells 0.0 0.0-0.19 % White Cell Morphology Comment See comments Erythrocyte Sedimentation Rate 74 H 0-15 MM/HR Chemistry Labs: Test 10/17/24 11:32 10/17/24 06:06 10/16/24 06:13 Range/Units Whole Blood Glucose 270 H 70-110 MG/DL Bedside Glucose Comment Notified Nurse Sodium Level 139 136-145 mmol/L Potassium Level 4.4 3.5-5.1 mmol/L Chloride Level 106 101-111 mmol/L Carbon Dioxide Level 27 21-32 mmol/L Blood Urea Nitrogen 48 H 7-18 mg/dL Creatinine 3.1 H 0.5-1.3 mg/dL Glomerular Filtration Rate Calc 24 >90 mL/min Random Glucose 268 H 70-105 mg/dL Total Calcium 8.2 L 8.5-10.1 mg/dL Phosphorus Level 4.5 2.5-4.9 mg/dL Magnesium Level 2.00 1.80-2.40 mg/dL Total Bilirubin 0.4 0.2-1.0 mg/dL Aspartate Amino Transf (AST/SGOT) 13 10-37 U/L Alanine Aminotransferase (ALT/SGPT) 19 12-78 U/L Alkaline Phosphatase 79 50-136 U/L C-Reactive Protein, Quantitative 23.70 H 0.5-3.0 mg/L Total Protein 5.7 L 6.0-8.3 g/dL Albumin 1.8 L 3.5-5.0 g/dL DIAGNOSTICS / RADIOLOGY RESULTS: PATIENT: BORIS YE JR MR#: [id number] : 1975 SEX: M AGE: 49 LOCATION: [facility] ORDER [id number] STATUS: ADM IN REPORT#: [id number] SERVICE [id number] REASON: resp failure ORDERING PHYSICIAN: ELIZABETH SOTO NP PROCEDURE: CHEST WO - CT CHEST W/O CONTRAST EXAM: Non-contrast CT examination of the chest. CLINICAL HISTORY: Respiratory failure. TECHNIQUE: Thin collimated axial CT images of the chest were obtained, and sagittal and coronal reformatted images were also submitted. A CT scan is done according to ALARA (As Low as Reasonably Achievable). CONTRAST USED: None. COMPARISON: CT chest, dated 05/04/2022. FINDINGS: There is moderate scarring with interstitial thickening in both the upper lobes and, right middle lobe. Similar milder changes are in both the lower lobes. 0.3 cm left lower lobe pulmonary nodule (series 3, image 31). Mild bilateral pleural effusions. No pericardial effusion. The heart size is within normal limits. There is patchy atherosclerotic calcification of the aorta and coronary arteries. Prominent pulmonary arteries. The main pulmonary artery measures 3.3 cm. No axillary, supraclavicular, or mediastinal lymphadenopathy. Limited views of the upper abdomen demonstrate no abnormality. No acute or suspicious osseous abnormality. IMPRESSION: 1. Moderate bilateral interstitial lung disease with fibrosis predominantly in the upper lobes. 2. 0.3 cm left lower lobe pulmonary nodule. LUNG RADS 2: Follow up in 12 months with LDCT. 3. Mild bilateral pleural effusions. No pulmonary infiltrates. 4. Prominent pulmonary arteries, suggesting pulmonary arterial hypertension. 5. Atherosclerosis and coronary artery disease. /[place] DICTATED BY: CHRISTELLE SINCLAIR MD DATE: 10/16/241034 ELECTRONICALLY SIGNED BY: CHRISTELLE SINCLAIR MD DATE: 10/16/241034 PLAN NEURO: Minimize central acting medications as possible. Maintain fall precautions, adequate lighting during the day PULMONARY: Supplemental 02 as needed. Maintain aspiration precautions at all times CARDIOVASCULAR: Follow hemodynamics. Vital signs per facility protocol GI & NUTRITION: Continue with nutritional support. Continue stool softeners and laxatives as needed. KIDNEYS & ELECTROLYTES: Strict monitoring of intake, output and overall fluid balance. Avoid nephrotoxic medications to the extent possible. Medications to be dosed according to renal function. Monitor electrolytes and replace as needed ENDOCRINE: Maintain blood glucose between 100-180 at all times. Hypoglycemia protocol in place INFECTIOUS DISEASE: Trend temperature, WBC and procalcitonin level Follow cultures, deescalate antibiotics as soon as possible. Panculture if new onset fever ONCOLOGY/HEMATOLOGY/COAGULATION: Monitor for s/s of bleeding Monitor hemoglobin, coagulation studies as needed SKIN: Pressure ulcer prevention per facility protocol Specialty mattress ORTHO/REHAB: Continue PT/OT Prophylaxis: Continue GI and DVT prophylaxis Code Status: Full Resuscitation Disposition: As per attending ATTESTATION BY PHYSICIAN I have evaluated the patient chart, medical records, and spoke with appropriate staff. I reviewed the documentation, medical decision making, and treatment plan as noted by the mid-level provider above. I agree with the findings and plan of care. Delon Hoang MD, [employer] ANALY[employer] Oct 17, 2024 12:36
--- NOTE | 2024-10-17 12:59 | PN ---
FOLLOWUP PROGRESS NOTE SUBJECTIVE: A 49-year-old male with history of pulmonary fibrosis. He has a history of diabetes mellitus and hypertension. He has a history of known diabetic nephropathy. The patient presented with acute on chronic renal failure as well as significant volume overload. The patient is feeling improved overnight. The patient is being set up for outpatient oxygen and the patient is being seen as a followup visit for all of the above. REVIEW OF SYSTEMS: CONSTITUTIONAL: He is feeling improved. HEENT: No change in vision. No change in hearing. CARDIOVASCULAR: There is no current chest pain or palpitations. PULMONARY: As described above. GASTROINTESTINAL: He is tolerating a diet. MUSCULOSKELETAL: Complaints of weakness. PHYSICAL EXAMINATION: VITAL SIGNS: Blood pressure 154/76, pulse in the 80s. He is afebrile. GENERAL: He is a chronically ill male, much older than appearing. HEENT: Head is atraumatic. Pupils are equal, roving to light. Oropharynx is without exudate. Nares clear. NECK: There is no JVP. There is no thyromegaly. No masses. CARDIOVASCULAR: Regular. There is no S3 or S4 gallop. LUNGS: Coarse with equal thoracic movement. ABDOMEN: Soft, nondistended, and nontender. EXTREMITIES: He has got minimal edema. LABORATORY DATA: BUN 48, creatinine is 3, sodium is 139. Hemoglobin 9.7, hematocrit 30. Protein creatinine ratio is approximately 10. IMPRESSION: * Acute on chronic renal failure. * Diabetic nephropathy. * Pulmonary fibrosis. * Hypertension. PLAN: The patient's workup is consistent with diabetic nephropathy. There is no acute need for any form of renal replacement therapy. The patient will need to continue the diuretics upon discharge and we will continue to follow closely. Once the patient is discharged, the patient can follow up in the Renal Clinic. TID: [id number] RECEIPT: [id number]
--- NOTE | 2024-10-17 19:25 | NUR ---
DC NOTE DC INSTRUCTIONS AND FOLLOW UP APPOINTMENTS GIVEN TO PT AND RETURN DEMONSTRATION ON OXYGEN USE, VERBALIZED UNDERSTANDING. PIV REMOVED, CATHETER INTACT, DENIES ANY PAIN OR DISCOMFORT. PT IS WHEELED DOWNSTAIRS WITH SUPERVISOR SHEARING INTO VIA PRIVATE CAR. NO FURTHER COMMENTS OR CONCERNS AT THIS TIME.
[2024-10-17 20:24] LABS: COLLECTION PERIOD,URINE 24 HR; TOTAL VOLUME 24HRS,URINE 1000 mL; TPROTEIN TIMED,URINE 684 mg/dL; TPROTEIN U,24HR CALC 6840 mg/24HR (0-165)
== END 2024-10-17 19:00 | disposition home or self-care (01) | DRG 291 ==
LOC: EDH 12:44 → EDHIP 15:29 → 3DH 22:04
PROVIDERS: ADMIT Internal Medicine; ATTEND Internal Medicine
DX: I13.0 Hypertensive heart and chronic kidney disease with heart failure and stage 1 through stage 4 chronic kidney disease, or unspecified chronic kidney disease (principal); E43 Unspecified severe protein-calorie malnutrition; J96.21 Acute and chronic respiratory failure with hypoxia; I50.23 Acute on chronic systolic (congestive) heart failure; N17.9 Acute kidney failure, unspecified; N39.0 Urinary tract infection, site not specified; D63.1 Anemia in chronic kidney disease; E11.22 Type 2 diabetes mellitus with diabetic chronic kidney disease; E66.812 Obesity, class 2; E83.42 Hypomagnesemia; N18.9 Chronic kidney disease, unspecified; E78.5 Hyperlipidemia, unspecified; E11.65 Type 2 diabetes mellitus with hyperglycemia; N25.89 Other disorders resulting from impaired renal tubular function; K29.70 Gastritis, unspecified, without bleeding; J84.10 Pulmonary fibrosis, unspecified; I25.10 Atherosclerotic heart disease of native coronary artery without angina pectoris; Z86.16 Personal history of COVID-19; Z87.891 Personal history of nicotine dependence; Z90.49 Acquired absence of other specified parts of digestive tract; Z95.5 Presence of coronary angioplasty implant and graft; Z91.199 Patient's noncompliance with other medical treatment and regimen due to unspecified reason; Z68.38 Body mass index [BMI] 38.0-38.9, adult
CPT/HCPCS: 36415; 36600; 71045; 71250; 76770; 78582; 80048; 80053; 81001; 82570; 82607; 82728; 82746; 82803; 82948; 83735; 83880; 84100; 84156; 84484; 85025; 85378; 85651; 86140; 87086; 93005; 93306; 93970; 94640; 94664; 94760; 96374; 99285; A9540; A9558; G0378; J0360; J0696; J1815; J1938; J2405; J2470; J2919; J3475; J3490; J7120